=== PATIENT | female | born 1945 | race Caucasian/White ===

== ENCOUNTER → 2017-01-12 | Outpatient (CLI) | payer MEDICARE, MEDICAID ==
[~2017-01-12] MED LIST: AMINOPHYLLIN200 MG PO; AMIODARONE HCL200 MG PO; AMLODIPINE BESY1 CA1 PO; AMLODIPINE BESY1 CA2 PO; AMLODIPINE BESY1 T23 PO; ARGINAID POWDE1 EACH PO; ARTHRITIS PAIN650 M3 PO; ASPIRIN ADULT L81 M2 PO; ASPIRIN81 M1 PO; ATIVAN0.5 MG PO; BAYER ASPIRIN C81 MG PO; CELEXA10 MG PO; CIPRO500 MG PO; COLACE100 MG PO; COUMADIN1 M1 PO; COUMADIN3 M1 PO; CRESTOR20 MG PO; DOK COLACE100 MG PO; DULCOLAX10 M1 RC; FERROUS SULFAT325 MG PO; FUROSEMIDE40 MG PO; HYDROCODONE BIT1 T11 PO; KEFLEX500 MG PO; KLOR-CON M2020 ME1 PO; LASIX20 MG PO; LEVOFLOXACIN5 ML PO; LIPITOR10 MG PO; LIPITOR40 MG PO; LOSARTAN POTASS25 M1 PO; LOVENOX30 MG/0.3 SC; Lopressor25 MG PO; METOPROLOL SUCC25 M2 PO; METOPROLOL SUCC50 M1 PO; MILK OF MA400 MG/51 PO; Magnesium Oxid400 MG PO; NAPROSYN500 MG PO; NATURE'S BLEND F1 MG PO; NKHM PO; OYSTER SHELL C1 EAC3 PO; PHYTONADIONE PO; SYMBICORT1 AE1 INH; TERBINAFINE250 MG PO; TOPROL XL50 M1 PO; VICODIN 5/500 505 MG PO; VITAMIN D-32000 UNIT PO; VITAMIN D32000 UNI1 PO; VOLTAREN50 M1 PO; ZOLOFT50 MG PO; [UNRECOGNIZED DRUG - OTHER] PO
== END | disposition home or self-care (01) ==
LOC: US 11:00
DX: I65.23 Occlusion and stenosis of bilateral carotid arteries (principal); L81.9 Disorder of pigmentation, unspecified; M79.674 Pain in right toe(s)

== ENCOUNTER 2017-01-22 13:01 | Inpatient (IN) | payer MEDICARE, MEDICAID ==
[~2017-01-22] VITALS: Ht 160 cm; Wt 59.9 kg
--- NOTE | ~2017-01-22 | CON ---
[place], [place] REPORT OF CONSULTATION NAME: RUBEN HENRY UNIT #: [id number] ROOM: [facility] DOCTOR: RAMY FERGUSON MD,MARTY BIRTHDATE: [birth year] DOS: 01/24/2017 The patient asked for consultation for this patient, but the patient was transferred prior to the assessment from this hospital to another facility and was not assessed. MARTY MCCANN MD CM:CONSTR:REPORT OF CONSULTATION 1230 01/24/17 2307 interface
[2017-01-22 13:01] VITALS: BP 110/60
[2017-01-22 13:48] LABS: BASO # 0.1 10*3/uL (0.0-0.1); BASO % 0.9 % (0.0-1.0); EOS # 1.4 10*3/uL (0.0-0.4); EOS % 16.8 % (1.0-4.0); HEMATOCRIT 33.1 % (37.0-47.0); HEMOGLOBIN 10.5 g/dl (12.0-16.0); LYMPH % 23.7 % (27.0-41.0); MEAN CELL VOLUME 96.8 fl (81.0-99.0); MEAN CORPUSCULAR HGB 30.7 pg (27.0-31.0); MEAN CORPUSCULAR HGB CONC 31.7 g/dl (33.0-37.0); MEAN PLATELET VOLUME 12.7 fl (9.6-12.3); MONO # 0.8 10*3/uL (0.1-1.0); MONO % 10.1 % (3.0-9.0); NEUT % 48.3 % (47.0-73.0); PLATELET COUNT AUTOMATED 170 10*3/uL (130-400); RED BLOOD COUNT 3.42 10*6/uL (4.10-5.10); RED CELL DISTRI WIDTH 14.6 % (0-14.5); WHITE BLOOD COUNT 8.2 10*3/uL (4.8-10.8)
[2017-01-22 14:05] LABS: BUN 37 mg/dl (7-24); CARBON DIOXIDE 27 mmol/L (21-32); CHLORIDE 106 mmol/L (98-107); EST GLOM FILT AFRICAN AMERICAN 27 ml/min; GLUCOSE 68 mg/dL (65-99); POTASSIUM 4.3 mmol/L (3.5-5.1); SODIUM 143 mmol/L (136-145); TROPONIN I < 0.015 ng/ml (<0.045)
[2017-01-22 14:35] VITALS: BP 111/54
[2017-01-22 16:13] VITALS: BP 128/55
[2017-01-22 16:43] VITALS: BP 139/63
[2017-01-22] MEDS ORDERED: QVAR0.08 MG/AC INH (16:47)
[2017-01-22] MEDS ORDERED: TYLENOL EXTRA500 M2 PO (16:48)
[2017-01-22] MEDS ORDERED: GNC NAC 600600 MG PO (16:49)
[2017-01-22] MEDS ORDERED: XARELTO15 M1 PO (16:49)
[2017-01-22 20:00] VITALS: BP 136/70
[2017-01-22 22:02] LABS: BILIRUBIN NEGATIVE (NEGATIVE); BLOOD NEGATIVE (NEGATIVE); CLARITY CLEAR (CLEAR); COLOR YELLOW (YELLOW); GLUCOSE NEGATIVE (NEGATIVE); KETONE NEGATIVE (NEGATIVE); LEUKO ESTERASE 1+ (NEGATIVE); NITRITE NEGATIVE (NEGATIVE); PH 5.5 (5.0-9.0); PROTEIN NEGATIVE (NEGATIVE); UROBILINOGEN 0.2 E.U./dl (0.2-1.0)
[2017-01-22 22:35] LABS: BACTERIA 3+; RBC 0-2 rbc/hpf (0-2); URINE REFLEX COMMENT YES (NO); WBC 16-20 wbc/hpf (0-5)
[2017-01-23] VITALS (7 sets, daily range): BP systolic 100–182; BP diastolic 45–90
[2017-01-23 06:36] LABS: HEMATOCRIT 28.9 % (37.0-47.0); HEMOGLOBIN 9.1 g/dl (12.0-16.0); MEAN CELL VOLUME 97.6 fl (81.0-99.0); MEAN CORPUSCULAR HGB 30.7 pg (27.0-31.0); MEAN CORPUSCULAR HGB CONC 31.5 g/dl (33.0-37.0); MEAN PLATELET VOLUME 13.2 fl (9.6-12.3); PLATELET COUNT AUTOMATED 136 10*3/uL (130-400); RED BLOOD COUNT 2.96 10*6/uL (4.10-5.10); RED CELL DISTRI WIDTH 14.5 % (0-14.5); WHITE BLOOD COUNT 6.9 10*3/uL (4.8-10.8)
[2017-01-23 07:07] LABS: BASOPHIL # 0.2 10*3/uL (0-0.1); BASOPHILS 3 % (0-1); EOSINOPHIL # 1.5 10*3/uL (0-0.4); EOSINOPHILS 22 % (1-4); LYMPHOCYTE # 1.7 10*3/uL (1.3-4.4); MONOCYTE # 0.6 10*3/uL (0.1-1.0); NEUTROPHIL # 2.8 10*3/uL (2.3-7.9); NEUTROPHILS 41 % (47-73); PLATELET SUFFICIENCY NORMAL (NORMAL); TOTAL CELLS COUNTED 100 #CELLS
[2017-01-23 07:20] LABS: ALBUMIN 2.5 gm/dl (3.1-4.5); BILIRUBIN, TOTAL 0.3 mg/dl (0.2-1.0); MAGNESIUM 2.2 mg/dL (1.5-2.1); POTASSIUM 4.3 mmol/L (3.5-5.1); TOTAL PROTEIN 5.7 gm/dL (6.4-8.2)
[2017-01-23 23:12] LABS: ABG CO2 CONTENT 21.2 mmol/L (23-27); ABG HCO3 19.4 mmol/l (22-26); ABG TEMPERATURE 97.4 F (98.0-99.0); ARTERIAL BLOOD GAS PO2 55.6 mmHg (80-90)
[2017-01-23 23:20] LABS: ABG BASE EXCESS -9.6 mmol/L (-2.0-2.0); ARTERIAL BLOOD GAS PH 7.147 (7.35-7.45)
== END 2017-01-24 01:49 | disposition short-term general hospital (02) | DRG 682 ==
LOC: ED 13:01 → 4E 15:29 → EDHOLD 15:29 → 4E 15:52 → ICCU 01-23 23:14
PROVIDERS: Emergency Medicine; Internal Medicine; Student in an Organized Health Care Education/Training Program
DX: N17.9 Acute kidney failure, unspecified (principal); E43 Unspecified severe protein-calorie malnutrition; J44.9 Chronic obstructive pulmonary disease, unspecified; I48.0 Paroxysmal atrial fibrillation; M19.90 Unspecified osteoarthritis, unspecified site; I12.9 Hypertensive chronic kidney disease with stage 1 through stage 4 chronic kidney disease, or unspecified chronic kidney disease; N18.3 Chronic kidney disease, stage 3 (moderate); F32.9 Major depressive disorder, single episode, unspecified; E78.5 Hyperlipidemia, unspecified; M81.0 Age-related osteoporosis without current pathological fracture; I25.10 Atherosclerotic heart disease of native coronary artery without angina pectoris; Z95.1 Presence of aortocoronary bypass graft; Z95.2 Presence of prosthetic heart valve; Z79.01 Long term (current) use of anticoagulants; Z87.891 Personal history of nicotine dependence; Z82.49 Family history of ischemic heart disease and other diseases of the circulatory system; Z80.3 Family history of malignant neoplasm of breast; Z68.23 Body mass index [BMI] 23.0-23.9, adult

== ENCOUNTER 2017-01-27 17:43 | Inpatient (IN) | payer OTHER, MEDICAID ==
[2017-01-27] VITALS (8 sets, daily range): BP systolic 115–181; BP diastolic 56–105
[~2017-01-27] VITALS: Ht 162.5 cm; Wt 59.1 kg
--- NOTE | ~2017-01-27 | CON ---
[place], [place] REPORT OF CONSULTATION NAME: RUBEN HENRY UNIT #: [id number] ROOM: [facility] DOCTOR: MARTY KABA MD BIRTHDATE: [birth year] DOS: 01/28/2017 PULMONARY CRITICAL CARE EVALUATION AND MANAGEMENT REASON FOR CONSULTATION: Assess the patient's acute respiratory failure. HISTORY OF PRESENT ILLNESS: The patient is a 71-year-old white female who has been known to me from the past. The patient has been frequently hospitalized for the past several months for the medical management of congestive heart failure and other problems. She already underwent cardiac surgery at [facility]. She has been admitted to this hospital again in 12/2016. After a short term stay for about 24-48 hours, the patient was transferred to [facility] for medical management of congestive heart failure. She has been treated and discharged. The patient presented back to the hospital. The patient has been currently hospitalized and readmitted to this hospital on 01/27/2017. The patient reported symptoms of having shortness breath, which has occurred gradually, started in the morning until the late evening. The patient was brought to the hospital by the EMS. EMS reported with the findings of pulse oxygen saturation 84% at home. The patient has also reported to the EMS as she has her lung drained "in [facility]" prior to discharge as well. The shortness of breath has been noted progressively worse for this patient. The patient brought to the hospital and required intubation. Mechanical ventilation started for the medical management of progressive respiratory failure. The patient has been currently intubated on mechanical ventilation with sedation, which has been noted low dose. She is able to understand the questions and pointing towards the tube for possible extubation. She has not been reported any symptoms of coughing, fevers, chills or chest pain that has been described at home. REVIEW OF SYSTEMS: Cannot be completed with patient at the present time since the patient is intubated, noted on mechanical ventilation. All the history has been obtained for the patient essentially from the review of the current documentation, medical record by the other physicians, my past assessment of the patient's documentation as well. PAST MEDICAL HISTORY: 1. Noted with history of recurrent hospitalization of the patient with a congestive heart failure for this patient with systolic dysfunction. 2. History of atrial fibrillation. 3. Degenerative arthritis. 4. Essential hypertension. 5. Angioneurotic depression. 6. History of centrilobular emphysema. 7. History of osteoporosis. 8. Moderate senile kyphosis. 9. Essential hypertension. 10. Severe mitral valve regurgitation, status post replacement in 2017. 11. Coronary artery disease, two-vessel coronary artery bypass grafting as well. [place], [place] REPORT OF CONSULTATION NAME: RUBEN HENRY UNIT #: [id number] ROOM: [facility] DOCTOR: RAMY FERGUSON MD,MARTY BIRTHDATE: [birth year] PAST SURGICAL HISTORY: 1. The patient was noted as mitral valve replacement. 2. Coronary artery bypass grafting done in 08/2016 in [facility]. 3. . 4. Intubation and mechanical ventilation for acute hypoxic respiratory failure. 5. What appear like thoracentesis as well. SOCIAL HISTORY: The patient is , has a children, residing at the nursing facility previously as well. Tobacco use noted since younger age, 2 pack of cigarettes per day, discontinued in the past few years ago. Denies history of alcohol use or any illicit drug use. FAMILY HISTORY: The patient reported father at age of 5858 years old, complication of myocardial infarction. Mother at age 51-year-old from complication of metastatic breast cancer. CURRENT MEDICATIONS: Which has been administered for the patient on this admission noted use of Lipitor, metoprolol tartrate, Xarelto, Protonix, IV Solu-Medrol, DuoNeb, IV Lasix 40 mg daily, IV Levaquin, IV vancomycin and Zosyn and other p.r.n. medications administration as well. DRUG ALLERGIES: The patient noted no known drug allergies. PHYSICAL EXAMINATION: GENERAL: This is a 71-year-old female who has been noted currently awake on the mechanical ventilator without any acute distress. VITAL SIGNS: The height for the patient noted 5 feet 4 inches, weight of 130 pounds. She was getting IV Diprivan at 10 mcg per kilogram per minute. The vital signs for the patient, which has been recorded showed the temperature of the patient recorded as normal since admission, respiratory rate 14-18, heart rate 64-100. The blood pressure 140/71-142/73. Intake for the patient recorded as 1160 mL, output 1400 mL since admission. Pulse oxygen saturation recorded on 40% oxygen with the BiPAP initially, 97% later on intubation. On 30% oxygen, the patient this morning noted 98%, prior to that 50% oxygen was used post-intubation with a saturation of 98% saturation at that time. HEENT: Examination shows head was atraumatic. The patient is orally intubated, orogastric tube is in place. NECK: Supple. CARDIOVASCULAR: S1, S2 is audible. LUNGS: The patient was noted without any wheezing. Scattered crackles of the lungs for the patient was noted. ABDOMEN: Soft, nontender. LABORATORY DATA: The lactic acid noted 2.8 on 01/27/2017. Troponin noted 0.14 on 01/27/2017 as well. The arterial blood gas of the patient on admission pH of 7.22, pCO2 of 53, pO2 of 92. The patient 40% with the BiPAP 12/8 settings. CBC on 01/27/2017, WBC count 18.5, hemoglobin 10.2, hematocrit 32.9, platelet count of 285,000 with 44% lymphocytes, 40% segmented neutrophils. Follow up lactic acid 1.8. The BMP of the patient that was done on 01/27/2017, BUN 46, creatinine 1.8, glucose 181, sodium 146, chloride mildly elevated as well. The [place], [place] REPORT OF CONSULTATION NAME: RUBEN HENRY UNIT #: [id number] ROOM: [facility] DOCTOR: RAMY FERGUSON MD,MARTY BIRTHDATE: [birth year] CMP of patient's BUN and creatinine on her previous short admission in this hospital noted BUN 35, creatinine 1.94 at that time. The PT, PTT for the patient that was done this morning was noted as normal PT and PTT. CMP repeated this morning showed BUN 45, creatinine 1.87, glucose 131. Albumin 2.8. The CK-MB and troponin repeated again shows CPK for this patient and MB were noted normal. Troponin 0.082, mildly elevated. Review of the radiology data for this patient. The chest x-ray of the patient that was done on admission, on 01/27/2017, was reviewed. It shows endotracheal tube was noted 4 cm above the sid level. The patient with right perihilar area and the left lower lobe atelectasis, infiltration combination. Chest x-ray repeated on 01/27/2017 for the patient as well shows bilateral pleural fluid, noted basilar area of atelectasis, which appeared to be increased with the patient since previous chest x-ray. The chest x-ray done this morning showed reduction of the previous noted area of atelectasis, pleural fluid, pulmonary venous congestion and infiltration as well. However, the infiltration, consolidation right lower lobe was still noted. IMPRESSION: 1. The patient will be currently admitted to the hospital, noted with acute hypercapnic and hypoxic respiratory failure as a result of most likely acute pneumonia, possibility aspiration to be considered. 2. Frequent hospitalization. The patient's colonization most likely of Gram-positive and Gram-negative organism, hospital-associated infection to be considered. 3. The patient with previous history of heavy nicotine abuse with chronic obstructive pulmonary disease and acute exacerbation as well occurred because of the current infection. 4. Acute sepsis of the patient, which has been noted on admission with resolving lactic acidosis. 5. History of congestive heart failure, systolic dysfunction as well. 6. The patient with chronic kidney disease stage III, for this patient appeared to be stable at the present time. PLAN OF TREATMENT: The patient's sedation has been ordered to be completely discontinued. The patient will be started on CPAP of 5, pressure support of 10 for 2 hours. The arterial blood gas will be assessed at that time. If the patient will be noted appropriate improvement in the ventilatory status and the patient with improvement in the hypoxia and stable clinical status, she might be considered for liberation of mechanical ventilator. In the meantime, continue ventilator bundle management. Nutrition support for the patient with the NG tube feeding will be decided for the patient. If the patient remains on mechanical ventilator to be given the nutrition support from the NG tube, otherwise, the patient could be assessed for oral nutrition support. Assess the patient by the Speech if she does get liberate from mechanical ventilator. Certainly, if the patient got liberated from mechanical ventilation, BiPAP will be used to stabilize the respiratory status following that. Monitor culture results of the patient's blood, endotracheal aspirate and others. Continue DVT prophylaxis with the form of Xarelto. Monitor heart rate for the patient's atrial fibrillation. Nutrition support will be provided for this patient. [place], [place] REPORT OF CONSULTATION NAME: RUBEN HENRY UNIT #: [id number] ROOM: [facility] DOCTOR: RAMY FERGUSON MD,MARTY BIRTHDATE: [birth year] Obtain the prealbumin level for the patient to assess the protein calorie malnutrition. Supportive therapy. Usual care. Total time for pulmonary critical care evaluation, management, consultation and dictation is 45 minutes. MARTY MCCANN MD CM:CONSTR:REPORT OF CONSULTATION 1424 01/28/17 2311 interface
--- NOTE | ~2017-01-27 | CON ---
[place], [place] REPORT OF CONSULTATION [id number] UNIT #: [id number] ROOM: 503 DOCTOR: YOLETTE QUEEN DPM BIRTHDATE: [birth year] DOS: 01/30/2017 SUBJECTIVE: The patient presents as a 71-year-old female who is known to our practice. The patient was seen at the office on 01/04/2017. Abnormal vascular studies were obtained and the patient was referred for vascular consultation with Dr. Torres's office. The patient was not seen again after that point. We are obtaining records from Dr. Torres's office to see what treatment had transpired. The patient is still complaining of discoloration and tenderness to the toes of the left foot. PAST MEDICAL HISTORY: Arthritis of the back and knees, atrial fibrillation, complete left bundle branch block, concussion, COPD, depression, fall, hypertension, hyperlipidemia, mitral regurgitation, normocytic anemia, NSTEMI, osteoporosis, overweight, severe protein calorie malnutrition, bicuspid regurgitation. PAST SURGICAL HISTORY: History of previous section, CABG x 4, heart valve replacement. SOCIAL HISTORY: Denies alcohol or illicit drug use, former smoker. FAMILY HISTORY: Father at age 58 of an [place]. Mother at age 51 of breast cancer, no known allergies. LOWER EXTREMITY EXAMINATION: Diminished pedal pulses, bilateral, cyanotic changes to the distal toes of the left foot with purple discoloration, no signs of acute gangrenous changes, tenderness to the digits noted. partial thickness ulcerations. Radiographs were unremarkable of both feet. ASSESSMENT: Peripheral vascular disease, left worse than right, ulcerative pregangrenous digits of the left foot. PLAN: Evaluation and management. Ordered arterial Doppler bilateral lower extremity. We will obtain records from Dr. Torres to see if any vascular intervention had been performed last month. If not, I recommend to proceed with the vascular consultation again and possible vascular intervention for the left lower extremity. YOLETTE QUEEN DPM CM:CONSTR:REPORT OF CONSULTATION 1245 01/30/17 2317 interface
--- NOTE | ~2017-01-27 | CON ---
[place], [place] REPORT OF CONSULTATION NAME: RUBEN HENRY UNIT #: [id number] ROOM: [facility] DOCTOR: KADEN MARTEL,EWAJerry BIRTHDATE: [birth year] DOS: 01/28/2017 REASON FOR CONSULTATION: Congestive heart failure. HISTORY OF PRESENT ILLNESS: The patient is a 71-year-old patient with history of coronary artery disease, valvular heart surgery, who was admitted for progressive shortness of breath. She had history of a bypass surgery and a mitral valve replacement last year and evidently she was at [facility] in [place], [place], and was discharged on Sunday and she was admitted due to congestive heart failure and also she had "thoracentesis" and discharged home on Sunday. On Sunday, she noted to have progressive shortness of breath and EMS was called and her pulse ox was about 90% and she was brought to the Emergency Room and was subsequently admitted to the hospital and required intubation due to her respiratory distress. She did have some "chest pressure" en route to the Emergency Room in ambulance. Due to patient being on ventilator and sedated, history was obtained from the ED records and her medical record. REVIEW OF SYSTEMS: Review of 8 systems negative due to patient being on ventilator and sedated. PAST MEDICAL HISTORY: 1. Coronary artery disease. 2. Mitral regurgitation. 3. Atrial fibrillation. 4. Hypertension. 5. Dyslipidemia. 6. Overweight. 7. Left bundle branch block. 8. COPD. PAST SURGICAL HISTORY: 1. Bypass surgery x 4. 2. Mitral valve replacement. 3. . SOCIAL HISTORY: The patient does not use any illicit drugs or does not drink. She was a former smoker, but quit smoking. FAMILY HISTORY: Father at age 58 from myocardial infarction. Mother at the age of 51 from breast cancer. ALLERGIES: No known drug allergies. MEDICATIONS: Home medications and current medications reviewed. PHYSICAL EXAMINATION: VITAL SIGNS: Blood pressure 140/71, pulse 79, respiratory rate 18. GENERAL: The patient is on ventilator and sedated. HEENT: The patient is on ventilator; hence, limited [place], [place] REPORT OF CONSULTATION NAME: RUBEN HENRY UNIT #: [id number] ROOM: [facility] DOCTOR: KADEN MARTEL,GREGG BIRTHDATE: [birth year] examnvetski . NECK: Supple. No distended neck veins. No carotid bruits. CHEST: Symmetrical. LUNGS: Few scattered rhonchi, diminished at right base. HEART: Regular rhythm. No S3. Grade 1/6 systolic murmur. No palpable thrills. ABDOMEN: Bowel sounds normal, no pulsatile masses. EXTREMITIES: Showed 1+ edema. Distal pulses are palpable. SKIN: Warm and dry. No cyanosis, no clubbing. NEUROLOGIC: The patient was on ventilator and sedated. RECTAL: Deferred. GENITOURINARY: Deferred. REVIEW OF THE DIAGNOSTIC TESTS: EKG, rhythm strips and labs reviewed. IMPRESSION: 1. Acute diastolic heart failure. 2. Respiratory failure, on mechanical ventilation. 3. Borderline elevation of cardiac troponins due to hypoxic respiratory failure and possible type 2 non-ST elevation myocardial infarction. 4. Coronary artery disease, status post 4-vessel bypass surgery. 5. Status post mitral valve replacement. 6. Paroxysmal atrial fibrillation. 7. Anemia. 8. Chronic kidney disease. RECOMMENDATIONS: 1. Continue her current supportive therapy. 2. Continue her home medications including aspirin, Xarelto, and beta blockers. 3. repeating a 2D echo for LV function and valvular function. 4. Her blood pressures and heart rates are stable. 5. Currently, there is no family at bedside at the time of my examination. 6. Dr. Post was on the case for her ventilator management and possible extubation when she is stable. 7. We will try to obtain her records from [facility]. GREGG ALFONSO MD CM:CONSTR:REPORT OF CONSULTATION 2135 01/29/17 0041 interface
--- NOTE | ~2017-01-27 | PR ---
[place], [place] PROGRESS NOTE NAME: RUBEN HENRY UNIT #: [id number] [facility] DOCTOR: MARTY KABA MD BIRTHDATE: [birth year] DOS: 01/29/2017 SUBJECTIVE: She has been successfully liberated from mechanical ventilator. NG tube for this patient was inserted yesterday and she was otherwise kept n.p.o. She has been ordered the modified barium swallow to be done today for possibility of dysphagia for the patient with recurrent aspiration pneumonia. The patient does have a cough without any sputum expectoration. Denies symptoms of chest pain, abdominal pain, shortness of breath have been noted decreased. Generalized weakness and fatigue, was described. OBJECTIVE: VITAL SIGNS: Showed normal temperature, respiratory rate 19 this morning, heart rate of 80, blood pressure 131/68. The pulse oxygen saturation for the patient recorded on 2 L nasal cannula 99% saturation. HEENT: Shows no new change. NECK: Supple. CARDIOVASCULAR SYSTEM: S1, S2 is audible. LUNGS: The patient noted with scattered crackles of the lungs without any wheezing. ABDOMEN: Soft, nontender. LABORATORY DATA: CBC today, hemoglobin 9.7, hematocrit 29.7, WBC count normal, platelet count were normal. CMP of the patient, BUN 50, creatinine 2.13, glucose 163. Total protein of 6.1, albumin of 2.7. IMPRESSION: 1. The patient who has been currently noted with significant improvement and resolution has been noted for the acute on chronic hypoxic respiratory failure, currently treated with oxygen supplementation and BiPAP as needed. 2. Congestive heart failure with systolic dysfunction with patient history. 3. Acute pneumonia, the patient which has been suspected with acute sepsis with lactic acidosis, currently improving. 4. Rule out dysphagia as well. PLAN OF TREATMENT: Continue current antibiotics. Proceed with modified barium swallow prior to making decision about the oral intake and diet consistency. In the meantime, use the NG tube for the patient if necessary for any medications or dietary intake. Usual care. All other supportive therapy, plan of management and treatments. [place], [place] PROGRESS NOTE NAME: RUBEN HENRY UNIT #: [id number] [facility] DOCTOR: MARTY KABA MD BIRTHDATE: [birth year] MARTY MCCANN MD CM:RDAU [id number] MARTY FERGUSON MD 01/29/17 1137 interface
--- NOTE | ~2017-01-27 | PROC NOTE ---
[place], [place] PROCEDURE NOTE NAME: RUBEN HENRY [facility] #: [id number] UNIT #: [id number] ROOM: [facility] DOCTOR: ROBYN SALMERON BIRTHDATE: [birth year] DOS: 01/29/2017 LOCATION: [facility]. ROOM: [place] [address]. DOCTOR: Dr. Post. RADIOLOGIST: ____. BACKGROUND INFORMATION: The patient is a 71-year-old female, was seen for a modified barium swallow. This test was ordered to rule out aspiration due to recurrent pneumonia. The patient reported having pneumonia 3 times since September. The patient was admitted with shortness of breath. She was recently hospitalized at [facility] with bypass surgery and mitral valve replacement. Further medical history includes increased cardiac enzymes, severe sepsis, respiratory distress, anxiety, arthritis, CABG, CAD, atrial fibrillation, HTN, and COPD. She is currently n.p.o. and fed by NG tube. For today's assessment, she was alert and able to follow commands. She was receiving oxygen via nasal cannula. Oral peripheral examination revealed presence of upper and lower denture which patient reported had an adequate fit. Lingual, labial, and buccal skills were within normal limits in terms of strength, range of motion, and coordination. The patient was able to volitionally cough and swallow. METHODS AND MATERIALS USED FOR THE EXAMINATION: The patient was positioned in the lateral plane and the examination was viewed under fluoroscopy. The patient was presented with a variety of consistencies to assess swallowing skills including applesauce mixed with barium presented in half teaspoon amounts, barium-coated cookie presented in bite size piece, and nectar thick barium taken by cup with head in both neutral and chin tuck positions. ORAL PHASE: The patient achieved adequate labial seal around cup and spoon with no anterior loss. Bolus formation and transit were adequate. Tongue to palate contact was within normal limits. Tongue to posterior pharyngeal wall contact was mildly impaired. Velar functioning within normal limits. PHARYNGEAL PHASE: The pharyngeal swallow occurred within a timely manner. Laryngeal elevation and epiglottic function were reduced. Silent penetration did occur with nectar thick liquids. This was eliminated with chin tuck position. Penetration did not occur with any other consistency. No aspiration was observed. Residue in the vallecula was observed post-swallow with consistencies given. However, this mostly cleared with subsequent swallow. ESOPHAGEAL PHASE: This phase of the swallow was not formally assessed during this exam. IMPRESSIONS AND RECOMMENDATIONS: Based upon assessment results, this 71-year-old patient presented with a mild oropharyngeal dysphagia. Residue was observed post-swallow in the vallecula, which mostly cleared with subsequent swallow. Reduced laryngeal elevation and epiglottic function occurred with [place], [place] PROCEDURE NOTE NAME: RUBEN HENRY UNIT #: [id number] [facility]OM: [facility] DOCTOR: ROBYN SALMERON BIRTHDATE: [birth year] silent penetration during the swallow noted on nectar liquids. This was eliminated with chin tuck. Recommended regular diet and nectar thick liquids. Recommend chin tuck with liquids. Followup therapy is recommended focusing on strengthening exercises, strategies, and education to ensure safety with highest level diet. Results and recommendations were shared with the patient and her nurse and they verbalized understanding. Thank you very much for this referral. Should you have any questions regarding this patient, please contact the speech pathologist at [phone]. ROBYN SALMERON CM:PROCNOTE:PROCEDURE NOTE [id number] ROBYN SALMERON
--- NOTE | ~2017-01-27 | PR ---
[place], [place] PROGRESS NOTE NAME: RUBEN HENRY UNIT #: [id number] ROOM: 503 DOCTOR: MARTY KABA MD BIRTHDATE: [birth year] DOS: 01/30/2017 PULMONARY PROGRESS NOTE SUBJECTIVE: She has been noted comfortable at this time, resting, sitting on the bed. She has modified barium swallow completed yesterday as well. Denies symptoms of chest pain or any abdominal pain. OBJECTIVE: VITAL SIGNS: For the patient shows normal temperature, respiratory rate of 18, heart rate of 89, blood pressure 152/72, this morning 137/59. Intake for the patient recorded 1500 mL, output 926 mL. Pulse oxygen saturation on 2 L nasal cannula 99% saturation recorded. HEENT: Examination shows head was atraumatic. Eyes nonicterus. NECK: Supple. CARDIOVASCULAR SYSTEM: S1, S2 audible. LUNGS: The patient was noted without any wheezing. Occasional crackles of the lungs. Decreased breath sounds in lung bases. ABDOMEN: Soft, nontender. LABORATORY DATA: CMP this morning, BUN 51, creatinine 2.24. Glucose 165. Potassium 3.2. CBC: Hemoglobin 9.5, hematocrit 29.6, platelet count was normal. Chest x-ray that was done this morning showed reduction previously noted, pulmonary infiltration was noted with small to moderate bilateral pleural fluid was suspected. Mild to moderate kyphoscoliosis of the thoracic spine was also noted. IMPRESSION: 1. The patient with possibility of acute aspiration pneumonia, treated for gram-positive and gram-negative organisms. 2. Bilateral pleural fluid secondary to congestive heart failure. 3. History of coronary artery bypass grafting and aortic valve replacement. PLAN OF TREATMENT: Continue for this patient any changes in the diet if recommended by the speech therapy. Continue monitoring pleural fluid. No immediate intervention will be needed unless the pleural fluid is larger. With the pleural fluid for this patient, certainly thoracentesis could be done. treatment otherwise will be advised. Usual care. Supportive care. Other therapy, plan of management and treatments. [place], [place] PROGRESS NOTE NAME: RUBEN HENRY UNIT #: [id number] ROOM: 503 DOCTOR: MARTY KABA MD BIRTHDATE: [birth year] MARTY MCCANN MD CM:PNTRANS 09 39 MARTY FERGUSON MD 01/30/172140 interface
[~2017-01-27 17:43] MED LIST changes: +GNC NAC 600600 MG PO; +QVAR0.08 MG/AC INH; +TYLENOL EXTRA500 M2 PO; +XARELTO15 M1 PO
[2017-01-27 18:02] LABS: HEMATOCRIT 32.9 % (37.0-47.0); HEMOGLOBIN 10.2 g/dl (12.0-16.0); MEAN CELL VOLUME 99.1 fl (81.0-99.0); MEAN CORPUSCULAR HGB 30.7 pg (27.0-31.0); PLATELET COUNT AUTOMATED 285 10*3/uL (130-400); RED BLOOD COUNT 3.32 10*6/uL (4.10-5.10); RED CELL DISTRI WIDTH 15.4 % (0-14.5); WHITE BLOOD COUNT 18.5 10*3/uL (4.8-10.8)
[2017-01-27 18:24] LABS: ABG CO2 CONTENT 22.9 mmol/L (23-27); ABG HCO3 21.3 mmol/l (22-26); ARTERIAL BLOOD GAS PH 7.22 (7.35-7.45); ARTERIAL BLOOD GAS PO2 92.4 mmHg (80-90)
[2017-01-27 18:25] LABS: ABG BASE EXCESS -6.2 mmol/L (-2.0-2.0)
[2017-01-27 18:42] LABS: ATYPICAL LYMPHS 1 % (0-0); BASOPHIL # 0.2 10*3/uL (0-0.1); BASOPHILS 1 % (0-1); EOSINOPHIL # 0.6 10*3/uL (0-0.4); EOSINOPHILS 3 % (1-4); LYMPHOCYTE # 8.3 10*3/uL (1.3-4.4); METAMYELOCYTES 1 % (0-0); MONOCYTE # 1.9 10*3/uL (0.1-1.0); NEUTROPHIL # 7.4 10*3/uL (2.3-7.9); NEUTROPHILS 40 % (47-73); TOTAL CELLS COUNTED 100 #CELLS
[2017-01-27 18:43] LABS: PLATELET SUFFICIENCY NORMAL (NORMAL)
[2017-01-27] MEDS ORDERED: MUCOMIST 26 GM/30 ML INH (19:12)
[2017-01-27] MEDS ORDERED: ASPIRIN81 M1 PO (19:12)
[2017-01-27] MEDS ORDERED: TYLENOL325 M1 PO (19:12)
[2017-01-27] MEDS ORDERED: ATIVAN0.5 MG PO (19:13)
[2017-01-27] MEDS ORDERED: QNASL8.7 GM INH (19:13)
[2017-01-27] MEDS ORDERED: LIPITOR40 MG PO (19:13)
[2017-01-27] MEDS ORDERED: Lopressor25 MG PO (19:14)
[2017-01-27] MEDS ORDERED: SERTRALINE HYDR50 MG PO (19:14)
[2017-01-27] MEDS ORDERED: XARELTO15 M1 PO (19:14)
[2017-01-27 19:59] LABS: LA>2 REFLEX 2 HR DRAW NOW
[2017-01-27 22:17] LABS: POTASSIUM 4.1 mmol/L (3.5-5.1)
[2017-01-27 22:44] LABS: ABG BASE EXCESS -0.3 mmol/L (-2.0-2.0); ABG CO2 CONTENT 24.4 mmol/L (23-27); ABG HCO3 23.3 mmol/l (22-26); ABG TEMPERATURE 97.2 F (98.0-99.0); ARTERIAL BLOOD GAS PH 7.442 (7.35-7.45); ARTERIAL BLOOD GAS PO2 68.6 mmHg (80-90)
[2017-01-28] VITALS (10 sets, daily range): BP systolic 116–157; BP diastolic 55–83
[2017-01-28 00:42] LABS: CKMB 3.7 ng/ml (0.5-3.6)
[2017-01-28 00:43] LABS: TROPONIN I 0.143 ng/ml (<0.045)
[2017-01-28 05:33] LABS: ABG BASE EXCESS 0.2 mmol/L (-2.0-2.0); ABG CO2 CONTENT 23.4 mmol/L (23-27); ABG HCO3 22.5 mmol/l (22-26); ABG TEMPERATURE 97.7 F (98.0-99.0); ARTERIAL BLOOD GAS PH 7.505 (7.35-7.45)
[2017-01-28 06:26] LABS: BASO % 0.2 % (0.0-1.0); HEMATOCRIT 30.7 % (37.0-47.0); HEMOGLOBIN 9.8 g/dl (12.0-16.0); LYMPH # 0.9 10*3/uL (1.3-4.4); LYMPH % 17.1 % (27.0-41.0); MEAN CELL VOLUME 96.2 fl (81.0-99.0); MEAN CORPUSCULAR HGB 30.7 pg (27.0-31.0); MEAN CORPUSCULAR HGB CONC 31.9 g/dl (33.0-37.0); MEAN PLATELET VOLUME 13.3 fl (9.6-12.3); MONO # 0.3 10*3/uL (0.1-1.0); MONO % 5.3 % (3.0-9.0); NEUT # 3.9 10*3/uL (2.3-7.9); NEUT % 76.6 % (47.0-73.0); NUCLEATED RED BLOOD CELL 0.4 % (0.0-0.0); RED BLOOD COUNT 3.19 10*6/uL (4.10-5.10); RED CELL DISTRI WIDTH 14.7 % (0-14.5); WHITE BLOOD COUNT 5.1 10*3/uL (4.8-10.8)
[2017-01-28 06:31] LABS: PLATELET COUNT AUTOMATED 151 10*3/uL (130-400)
[2017-01-28 06:38] LABS: ALBUMIN 2.8 gm/dl (3.1-4.5); CKMB 3.1 ng/ml (0.5-3.6); MAGNESIUM 2.4 mg/dL (1.5-2.1); POTASSIUM 3.9 mmol/L (3.5-5.1)
[2017-01-28 06:45] LABS: BILIRUBIN, TOTAL 0.5 mg/dl (0.2-1.0); FREE T4 1.57 ng/dl (0.76-1.46); THYROID STIM HORMONE (HS) 1.69 uIU/ml (0.358-4.75); TOTAL PROTEIN 6.5 gm/dL (6.4-8.2)
[2017-01-28 06:48] LABS: TROPONIN I 0.108 ng/ml (<0.045)
[2017-01-28 06:54] LABS: HEMOGLOBIN A1c 5.9 % (4.8-5.6)
[2017-01-28 06:55] LABS: INTERNATIONAL NORM RATIO 1.2 (2.0-3.5); PROTHROMBIN TIME 12.3 SECONDS (9.0-12.4)
[2017-01-28 08:06] LABS: FOLIC ACID 20.31 ng/mL (>5.38)
[2017-01-28 12:19] LABS: CKMB 2.2 ng/ml (0.5-3.6)
[2017-01-28 12:29] LABS: TROPONIN I 0.082 ng/ml (<0.045)
[2017-01-28 14:53] LABS: ABG BASE EXCESS 0.3 mmol/L (-2.0-2.0); ABG CO2 CONTENT 23.6 mmol/L (23-27); ABG HCO3 22.7 mmol/l (22-26); ARTERIAL BLOOD GAS PH 7.492 (7.35-7.45)
[2017-01-29] VITALS: BP 146/67
[2017-01-29 04:00] VITALS: BP 136/62
[2017-01-29 05:46] LABS: ALBUMIN 2.7 gm/dl (3.1-4.5); BILIRUBIN, TOTAL 0.5 mg/dl (0.2-1.0); MAGNESIUM 2.3 mg/dL (1.5-2.1); POTASSIUM 3.5 mmol/L (3.5-5.1); TOTAL PROTEIN 6.1 gm/dL (6.4-8.2)
[2017-01-29 05:58] LABS: HEMATOCRIT 29.7 % (37.0-47.0); HEMOGLOBIN 9.7 g/dl (12.0-16.0); IG # 0.1 10*3/uL (0.0-0.1); LYMPH # 0.8 10*3/uL (1.3-4.4); LYMPH % 9.5 % (27.0-41.0); MEAN CELL VOLUME 94.9 fl (81.0-99.0); MEAN CORPUSCULAR HGB CONC 32.7 g/dl (33.0-37.0); MEAN PLATELET VOLUME 13.2 fl (9.6-12.3); MONO # 0.6 10*3/uL (0.1-1.0); MONO % 6.5 % (3.0-9.0); NEUT # 7.2 10*3/uL (2.3-7.9); NEUT % 83.2 % (47.0-73.0); PLATELET COUNT AUTOMATED 190 10*3/uL (130-400); RED BLOOD COUNT 3.13 10*6/uL (4.10-5.10); RED CELL DISTRI WIDTH 15.1 % (0-14.5); WHITE BLOOD COUNT 8.6 10*3/uL (4.8-10.8)
[2017-01-29 08:00] VITALS: BP 131/68
[2017-01-29 12:00] VITALS: BP 149/71
[2017-01-29 16:00] VITALS: BP 125/60
[2017-01-29 20:00] VITALS: BP 125/58
[2017-01-30] VITALS: BP 139/68
[2017-01-30 06:09] LABS: BASO % 0.1 % (0.0-1.0); HEMATOCRIT 29.6 % (37.0-47.0); HEMOGLOBIN 9.5 g/dl (12.0-16.0); IG # 0.1 10*3/uL (0.0-0.1); LYMPH # 0.6 10*3/uL (1.3-4.4); LYMPH % 6.9 % (27.0-41.0); MEAN CELL VOLUME 95.2 fl (81.0-99.0); MEAN CORPUSCULAR HGB 30.5 pg (27.0-31.0); MEAN CORPUSCULAR HGB CONC 32.1 g/dl (33.0-37.0); MONO # 0.4 10*3/uL (0.1-1.0); MONO % 3.9 % (3.0-9.0); NEUT # 7.8 10*3/uL (2.3-7.9); PLATELET COUNT AUTOMATED 198 10*3/uL (130-400); RED BLOOD COUNT 3.11 10*6/uL (4.10-5.10); RED CELL DISTRI WIDTH 15.1 % (0-14.5); WHITE BLOOD COUNT 8.9 10*3/uL (4.8-10.8)
[2017-01-30 06:36] LABS: ALBUMIN 2.7 gm/dl (3.1-4.5); BILIRUBIN, TOTAL 0.5 mg/dl (0.2-1.0); MAGNESIUM 2.4 mg/dL (1.5-2.1); POTASSIUM 3.2 mmol/L (3.5-5.1); TOTAL PROTEIN 6.1 gm/dL (6.4-8.2)
[2017-01-30 08:00] VITALS: BP 137/59
[2017-01-30 12:00] VITALS: BP 152/72
[2017-01-30] MEDS ORDERED: DOXYCYCLINE100 M3 PO (13:21)
[2017-01-30] MEDS ORDERED: PREDNISONE10 MG PO (13:21)
[2017-01-30] MEDS ORDERED: LASIX20 MG PO (14:10)
[2017-01-30] MEDS ORDERED: K-TAB20 MEQ PO (14:18)
[2017-01-30 16:00] VITALS: BP 117/54
== END 2017-01-30 18:11 | disposition home health service (06) | DRG 871 ==
LOC: ED 17:43 → ICCU 18:49 → EDHOLD 18:49 → ICCU 19:05 → 5E 01-29 15:10
PROVIDERS: Emergency Medicine; Family Medicine Adult Medicine; Internal Medicine; Internal Medicine Critical Care Medicine
PROC: 5A09357 Assistance with Respiratory Ventilation, Less than 24 Consecutive Hours, Continuous Positive Airway Pressure (ICD-10-PCS; principal; 2017-01-28)
PROC: BD1BYZZ Fluoroscopy of Mouth/Oropharynx using Other Contrast (ICD-10-PCS; principal; 2017-01-28)
PROC: 0BH17EZ Insertion of Endotracheal Airway into Trachea, Via Natural or Artificial Opening (ICD-10-PCS; principal; 2017-01-28)
PROC: 5A1935Z Respiratory Ventilation, Less than 24 Consecutive Hours (ICD-10-PCS; principal; 2017-01-28)
DX: A41.9 Sepsis, unspecified organism (principal); E43 Unspecified severe protein-calorie malnutrition; N17.0 Acute kidney failure with tubular necrosis; J96.21 Acute and chronic respiratory failure with hypoxia; I21.4 Non-ST elevation (NSTEMI) myocardial infarction; I50.31 Acute diastolic (congestive) heart failure; J18.9 Pneumonia, unspecified organism; I48.0 Paroxysmal atrial fibrillation; E83.41 Hypermagnesemia; I13.0 Hypertensive heart and chronic kidney disease with heart failure and stage 1 through stage 4 chronic kidney disease, or unspecified chronic kidney disease; R13.10 Dysphagia, unspecified; J81.0 Acute pulmonary edema; J96.22 Acute and chronic respiratory failure with hypercapnia; J44.9 Chronic obstructive pulmonary disease, unspecified; D64.9 Anemia, unspecified; R65.20 Severe sepsis without septic shock; E78.5 Hyperlipidemia, unspecified; N18.9 Chronic kidney disease, unspecified; M81.0 Age-related osteoporosis without current pathological fracture; I73.9 Peripheral vascular disease, unspecified; I25.10 Atherosclerotic heart disease of native coronary artery without angina pectoris; I34.0 Nonrheumatic mitral (valve) insufficiency; Z95.1 Presence of aortocoronary bypass graft; I25.2 Old myocardial infarction; Z87.891 Personal history of nicotine dependence; Z82.49 Family history of ischemic heart disease and other diseases of the circulatory system; Z80.3 Family history of malignant neoplasm of breast; Z79.1 Long term (current) use of non-steroidal anti-inflammatories (NSAID); Z79.82 Long term (current) use of aspirin; Z79.899 Other long term (current) drug therapy; Z68.22 Body mass index [BMI] 22.0-22.9, adult

== ENCOUNTER 2017-03-04 21:41 | Inpatient (IN) | payer OTHER, MEDICAID ==
[~2017-03-04] VITALS: Ht 160 cm; Wt 60.8 kg
--- NOTE | ~2017-03-04 | EKG ---
[place], [place] ELECTROCARDIOGRAM REPORT NAME: RUBEN HENRY UNIT #: [id number] ROOM: [facility] DOCTOR: DAMIAN CRAMER MD BIRTHDATE: [birth year] DOS: 03/04/2017 TIME: 2207 hours. Normal sinus rhythm at a rate of 86. Normal EKG. DAMIAN CRAMER MD CM:EKGRPT:ELECTROCARDIOGRAM REPORT 1224 1458 DAMIAN CRAMER MD
--- NOTE | ~2017-03-04 | CON ---
[place], [place] REPORT OF CONSULTATION NAME: RUBEN HENRY UNIT #: [id number] ROOM: 520 DOCTOR: YOLETTE QUEEN DPM BIRTHDATE: [birth year] DOS: 03/06/2017 SUBJECTIVE: The patient presents as a 71-year-old female with chief complaint of ulcers to the left foot. The patient was seen a month ago, had vascular studies performed. Current visit medical problems, CHF, exacerbation of COPD, aspiration. PAST MEDICAL HISTORY: Arthritis, back and bilateral knee, atrial fibrillation, complete left bundle branch block, concussion, COPD, depression, fall, hypertension, hyperlipidemia, mitral regurg, normocytic anemia, osteoporosis, severe protein calorie malnutrition, tricuspid regurgitation, acute kidney failure with tubular necrosis, acute respiratory failure with hypercapnia, HCAP, PAD, right lower lobe pneumonia, severe sepsis. PAST SURGICAL HISTORY: Previous section, CABG x 4, status post heart valve replacement. SOCIAL HISTORY: Former smoker. FAMILY HISTORY: Father at age 58 of [address]. Mother at 51, breast cancer. ALLERGIES: No known allergies. PHYSICAL EXAMINATION: Lower extremity examination, pedal pulses nonpalpable. Decreased skin temperature. No hair growth. Decreased capillary refill time bilateral, left worse than right. Ulcerations at the dorsal nail bed first left toe, third left toe, an fifth left MPJ, ulceration showed no signs of purulent drainage or foul odor, no deep sinus tract. ASSESSMENT: Severe peripheral vascular disease, ulcerations, left foot. PLAN: Evaluation and management discussed with the patient and recommended vascular intervention. Ordered Bactroban dressings daily, ordered radiographs of the left foot. In my opinion, the patient needs vascular intervention due to the peripheral arterial disease. We will follow the patient tomorrow for followup. Again, the patient's arterial Doppler performed on 01/30/2017 did indeed reveal mild hemodynamically significant stenosis at the distal SFA, left greater than right with elevated velocities, inability to obtain bilateral ABIs due to calcified lower leg arteries. The patient will be seen tomorrow by Dr. Silva. [place], [place] REPORT OF CONSULTATION NAME: RUBEN HENRY UNIT #: [id number] ROOM: 520 DOCTOR: YOLETTE QUEEN DPM BIRTHDATE: [birth year] YOLETET QUEEN DPM CM:CONSTR:REPORT OF CONSULTATION 1222 03/07/17 0936 interface
[~2017-03-04 21:41] MED LIST changes: +DOXYCYCLINE100 M3 PO; +K-TAB20 MEQ PO; +MUCOMIST 26 GM/30 ML INH; +PREDNISONE10 MG PO; +QNASL8.7 GM INH; +SERTRALINE HYDR50 MG PO; +TYLENOL325 M1 PO
[2017-03-04 21:46] VITALS: BP 158/82
[2017-03-04 22:07] LABS: RED CELL DISTRI WIDTH 15.1 % (0-14.5)
[2017-03-04 22:12] LABS: BASO # 0.1 10*3/uL (0.0-0.1); EOS # 0.4 10*3/uL (0.0-0.4); EOS % 4.8 % (1.0-4.0); HEMATOCRIT 33.5 % (37.0-47.0); HEMOGLOBIN 10.4 g/dl (12.0-16.0); LYMPH # 2.8 10*3/uL (1.3-4.4); LYMPH % 30.7 % (27.0-41.0); MEAN CELL VOLUME 97.4 fl (81.0-99.0); MEAN CORPUSCULAR HGB 30.2 pg (27.0-31.0); MEAN PLATELET VOLUME 11.1 fl (9.6-12.3); MONO # 1.1 10*3/uL (0.1-1.0); MONO % 12.1 % (3.0-9.0); NEUT # 4.7 10*3/uL (2.3-7.9); NEUT % 51.1 % (47.0-73.0); PLATELET COUNT AUTOMATED 346 10*3/uL (130-400); RED BLOOD COUNT 3.44 10*6/uL (4.10-5.10); WHITE BLOOD COUNT 9.1 10*3/uL (4.8-10.8)
[2017-03-04 22:14] LABS: INTERNATIONAL NORM RATIO 1.3 (2.0-3.5); PROTHROMBIN TIME 13.5 SECONDS (9.0-12.4)
[2017-03-04 22:23] LABS: BILIRUBIN, TOTAL 0.4 mg/dl (0.2-1.0); CKMB 1.5 ng/ml (0.5-3.6); MAGNESIUM 2.5 mg/dL (1.5-2.1); POTASSIUM 3.8 mmol/L (3.5-5.1); TOTAL PROTEIN 6.8 gm/dL (6.4-8.2); TROPONIN I 0.025 ng/ml (<0.045)
[2017-03-04 22:26] LABS: BASOPHIL # 0.3 10*3/uL (0-0.1); BASOPHILS 3 % (0-1); EOSINOPHIL # 0.3 10*3/uL (0-0.4); EOSINOPHILS 3 % (1-4); LYMPHOCYTE # 2.3 10*3/uL (1.3-4.4); MONOCYTE # 1.2 10*3/uL (0.1-1.0); NEUTROPHIL # 5.1 10*3/uL (2.3-7.9); NEUTROPHILS 56 % (47-73); TOTAL CELLS COUNTED 100 #CELLS
[2017-03-04 22:27] LABS: PLATELET SUFFICIENCY NORMAL (NORMAL)
[2017-03-04 22:39] VITALS: BP 156/87
[2017-03-05 00:30] VITALS: BP 94/72
[2017-03-05 06:01] LABS: BASO % 0.4 % (0.0-1.0); EOS % 0.1 % (1.0-4.0); HEMOGLOBIN 9.5 g/dl (12.0-16.0); LYMPH # 0.8 10*3/uL (1.3-4.4); LYMPH % 10.5 % (27.0-41.0); MEAN CELL VOLUME 95.2 fl (81.0-99.0); MEAN CORPUSCULAR HGB 30.2 pg (27.0-31.0); MEAN CORPUSCULAR HGB CONC 31.7 g/dl (33.0-37.0); MEAN PLATELET VOLUME 11.4 fl (9.6-12.3); MONO # 0.1 10*3/uL (0.1-1.0); MONO % 0.7 % (3.0-9.0); NEUT # 6.7 10*3/uL (2.3-7.9); NEUT % 87.8 % (47.0-73.0); PLATELET COUNT AUTOMATED 262 10*3/uL (130-400); RED BLOOD COUNT 3.15 10*6/uL (4.10-5.10); WHITE BLOOD COUNT 7.6 10*3/uL (4.8-10.8)
[2017-03-05 06:14] LABS: CKMB 1.8 ng/ml (0.5-3.6); TROPONIN I 0.031 ng/ml (<0.045)
[2017-03-05 06:16] LABS: ALBUMIN 2.7 gm/dl (3.1-4.5); BILIRUBIN, TOTAL 0.3 mg/dl (0.2-1.0); FREE T4 1.16 ng/dl (0.76-1.46); MAGNESIUM 2.3 mg/dL (1.5-2.1); PHOSPHOROUS 3.5 mg/dL (2.5-4.9); POTASSIUM 4.2 mmol/L (3.5-5.1)
[2017-03-05 06:21] LABS: THYROID STIM HORMONE (HS) 1.17 uIU/ml (0.358-4.75)
[2017-03-05 06:37] LABS: INTERNATIONAL NORM RATIO 1.2 (2.0-3.5); PROTHROMBIN TIME 12.8 SECONDS (9.0-12.4)
[2017-03-05 06:50] LABS: HEMOGLOBIN A1c 5.3 % (4.8-5.6)
[2017-03-05 07:00] LABS: FOLIC ACID 22.27 ng/mL (>5.38); VITAMIN D, 25-HYDROXY 27.6 ng/mL (30-100)
[2017-03-05 08:00] VITALS: BP 124/56
[2017-03-05 12:00] VITALS: BP 135/60
[2017-03-05 12:27] LABS: CKMB 1.7 ng/ml (0.5-3.6); TROPONIN I 0.016 ng/ml (<0.045)
[2017-03-05 16:00] VITALS: BP 115/49
[2017-03-05 18:25] LABS: CKMB 1.4 ng/ml (0.5-3.6); CPK 49 U/L (26-192)
[2017-03-05 18:28] LABS: TROPONIN I < 0.015 ng/ml (<0.045)
[2017-03-05 20:00] VITALS: BP 99/52
[2017-03-06] VITALS: BP 106/49
[2017-03-06 07:12] LABS: POTASSIUM 4.6 mmol/L (3.5-5.1)
[2017-03-06 08:00] VITALS: BP 110/46
[2017-03-06 12:00] VITALS: BP 133/59
[2017-03-06 16:00] VITALS: BP 124/59
[2017-03-06 20:00] VITALS: BP 114/54
[2017-03-07] VITALS: BP 132/62
[2017-03-07 07:32] LABS: POTASSIUM 4.3 mmol/L (3.5-5.1)
[2017-03-07 08:00] VITALS: BP 134/48
[2017-03-07] MEDS ORDERED: LEVAQUIN250 M1 PO (10:41)
[2017-03-07] MEDS ORDERED: PREDNISONE10 MG PO (10:41)
[2017-03-07] MEDS ORDERED: D-1000 185 MG-11 TAB PO (10:41)
== END 2017-03-07 11:18 | disposition home health service (06) | DRG 291 ==
LOC: ED 21:41 → 5E 23:31 → EDHOLD 23:31 → 5E 23:49
PROVIDERS: Internal Medicine; Physician Assistant
DX: I11.0 Hypertensive heart disease with heart failure (principal); J18.9 Pneumonia, unspecified organism; E43 Unspecified severe protein-calorie malnutrition; I48.91 Unspecified atrial fibrillation; I73.9 Peripheral vascular disease, unspecified; D64.9 Anemia, unspecified; L97.529 Non-pressure chronic ulcer of other part of left foot with unspecified severity; J44.1 Chronic obstructive pulmonary disease with (acute) exacerbation; J44.0 Chronic obstructive pulmonary disease with (acute) lower respiratory infection; Z95.2 Presence of prosthetic heart valve; I50.33 Acute on chronic diastolic (congestive) heart failure; Z68.23 Body mass index [BMI] 23.0-23.9, adult; F32.9 Major depressive disorder, single episode, unspecified; Z87.891 Personal history of nicotine dependence; Z82.49 Family history of ischemic heart disease and other diseases of the circulatory system; Z80.3 Family history of malignant neoplasm of breast; I25.10 Atherosclerotic heart disease of native coronary artery without angina pectoris; Z95.1 Presence of aortocoronary bypass graft

== ENCOUNTER → 2017-04-04 | Outpatient (CLI) | payer OTHER, MEDICAID ==
[~2017-04-04] MED LIST changes: +D-1000 185 MG-11 TAB PO; +LEVAQUIN250 M1 PO
== END | disposition home or self-care (01) ==
LOC: US 13:57
DX: N18.3 Chronic kidney disease, stage 3 (moderate) (principal)

== ENCOUNTER → 2017-05-11 | Outpatient (CLI) | payer OTHER, MEDICAID ==
[2017-05-11 10:51] LABS: BASO # 0.1 10*3/uL (0.0-0.1); BASO % 1.2 % (0.0-1.0); EOS # 1.5 10*3/uL (0.0-0.4); EOS % 15.6 % (1.0-4.0); HEMATOCRIT 32.6 % (37.0-47.0); HEMOGLOBIN 10.4 g/dl (12.0-16.0); LYMPH # 2.3 10*3/uL (1.3-4.4); LYMPH % 24.1 % (27.0-41.0); MEAN CELL VOLUME 87.6 fl (81.0-99.0); MEAN CORPUSCULAR HGB CONC 31.9 g/dl (33.0-37.0); MEAN PLATELET VOLUME 12.2 fl (9.6-12.3); MONO # 0.8 10*3/uL (0.1-1.0); MONO % 8.5 % (3.0-9.0); NEUT # 4.8 10*3/uL (2.3-7.9); NEUT % 50.2 % (47.0-73.0); PLATELET COUNT AUTOMATED 249 10*3/uL (130-400); RED BLOOD COUNT 3.72 10*6/uL (4.10-5.10); RED CELL DISTRI WIDTH 14.9 % (0-14.5); WHITE BLOOD COUNT 9.5 10*3/uL (4.8-10.8)
[2017-05-11 10:52] LABS: BILIRUBIN NEGATIVE (NEGATIVE); BLOOD NEGATIVE (NEGATIVE); CLARITY SL CLOUDY (CLEAR); COLOR YELLOW (YELLOW); GLUCOSE NEGATIVE (NEGATIVE); KETONE NEGATIVE (NEGATIVE); LEUKO ESTERASE 1+ (NEGATIVE); NITRITE NEGATIVE (NEGATIVE); PROTEIN TRACE (NEGATIVE)
[2017-05-11 11:00] LABS: URINE TP/CRE RATIO 0.2 (<0.21)
[2017-05-11 11:14] LABS: BACTERIA TRACE
[2017-05-11 11:20] LABS: ALBUMIN 3.5 gm/dl (3.1-4.5); PHOSPHOROUS 3.7 mg/dL (2.5-4.9); POTASSIUM 3.7 mmol/L (3.5-5.1)
[2017-05-11 11:28] LABS: PTH INTACT 142.8 pg/mL (14.0-72.0); VITAMIN D, 25-HYDROXY 29.5 ng/mL (30-100)
== END | disposition home or self-care (01) ==
LOC: LAB 10:20
PROVIDERS: Internal Medicine Nephrology
DX: N18.3 Chronic kidney disease, stage 3 (moderate) (principal); E55.9 Vitamin D deficiency, unspecified

== ENCOUNTER → 2017-05-15 | Outpatient (CLI) | payer OTHER, MEDICAID ==
[2017-05-15 09:53] LABS: BASO # 0.1 10*3/uL (0.0-0.1); BASO % 0.8 % (0.0-1.0); EOS # 0.2 10*3/uL (0.0-0.4); EOS % 2.1 % (1.0-4.0); HEMATOCRIT 30.7 % (37.0-47.0); HEMOGLOBIN 9.8 g/dl (12.0-16.0); LYMPH # 2.6 10*3/uL (1.3-4.4); LYMPH % 30.7 % (27.0-41.0); MEAN CELL VOLUME 88.2 fl (81.0-99.0); MEAN CORPUSCULAR HGB 28.2 pg (27.0-31.0); MEAN CORPUSCULAR HGB CONC 31.9 g/dl (33.0-37.0); MEAN PLATELET VOLUME 12.2 fl (9.6-12.3); MONO # 0.7 10*3/uL (0.1-1.0); MONO % 7.7 % (3.0-9.0); NEUT % 58.5 % (47.0-73.0); PLATELET COUNT AUTOMATED 241 10*3/uL (130-400); RED BLOOD COUNT 3.48 10*6/uL (4.10-5.10); RED CELL DISTRI WIDTH 14.8 % (0-14.5); WHITE BLOOD COUNT 8.6 10*3/uL (4.8-10.8)
[2017-05-15 10:07] LABS: CHOLESTEROL 200 mg/dL (<200); HDL CHOLESTEROL 50 mg/dl (40-60); LDL CHOLESTEROL 130 mg/dL (9-159); TRIGLYCERIDES 102 mg/dl (<150); VLDL CHOLESTEROL 20 mg/dL (6-40)
== END | disposition home or self-care (01) ==
LOC: LAB 09:09
PROVIDERS: Internal Medicine
DX: E78.5 Hyperlipidemia, unspecified (principal); I25.10 Atherosclerotic heart disease of native coronary artery without angina pectoris; I10 Essential (primary) hypertension

== ENCOUNTER 2017-11-23 12:11 | Emergency (ER) | payer OTHER, MEDICAID ==
[~2017-11-23] VITALS: Ht 160 cm; Wt 65.8 kg
[2017-11-23] MEDS ORDERED: NAPROSYN500 MG PO (14:51)
== END 2017-11-23 15:19 | disposition home or self-care (01) ==
LOC: ED 12:11
DX: S20.212A Contusion of left front wall of thorax, initial encounter (principal); M19.90 Unspecified osteoarthritis, unspecified site; I11.0 Hypertensive heart disease with heart failure; I50.9 Heart failure, unspecified; E78.5 Hyperlipidemia, unspecified; I25.2 Old myocardial infarction; I48.91 Unspecified atrial fibrillation; E66.3 Overweight; Z68.29 Body mass index [BMI] 29.0-29.9, adult; Z87.891 Personal history of nicotine dependence; Z98.890 Other specified postprocedural states; Z95.1 Presence of aortocoronary bypass graft; Z79.899 Other long term (current) drug therapy; Z79.82 Long term (current) use of aspirin; W19.XXXA Unspecified fall, initial encounter; Y93.89 Activity, other specified; Y92.89 Other specified places as the place of occurrence of the external cause; Y99.9 Unspecified external cause status

== ENCOUNTER 2018-02-01 13:01 | Inpatient (IN) | payer OTHER, MEDICAID ==
[2018-02-01] VITALS (12 sets, daily range): BP systolic 99–137; BP diastolic 40–78
[~2018-02-01] VITALS: Ht 160 cm; Wt 70.5 kg
--- NOTE | ~2018-02-01 | CON ---
[place], [place] REPORT OF CONSULTATION [id number] UNIT #: [id number] ROOM: [facility] DOCTOR: CATIE SINGH MD BIRTHDATE: [birth year] DOS: 02/01/2018 GASTROENDOSCOPIC REPORT HISTORY OF PRESENT ILLNESS: A 72-year-old patient, who was presented with chief complaint of shortness of breath. In the Emergency Room; apparently, his shortness of breath have been progressively worsening over the past 3 weeks according to the family in the room and the patient was feeling weak and exhausted and she had to be admitted for definitive evaluation specifically after laboratory values showed the H of 6 and 20 with a comprehensive metabolic panel showing BUN and creatinine 42 and 1.6 with GFR of 38 and electrolytes of sodium 144 and chloride 113. Liver function test normal. Troponin being normal. Chest x-ray was done, essentially normal except suspected right tiny pleural effusion. PAST MEDICAL HISTORY: Associated with COPD, congestive heart failure in the past, atrial fibrillation, aortic valvular disease, chronic renal insufficiency, depression, hypertension, hyperlipidemia, coronary artery disease, and stenting. PAST SURGICAL HISTORY: Status post coronary artery bypass graft x 4 vessel and aortic valvular repair. SOCIAL HISTORY: Passive smoker. Nonalcohol consumer. FAMILY HISTORY: Noncontributory. ALLERGIES: To no known medications. MEDICATIONS: List was reviewed. REVIEW OF SYSTEMS: HEENT: In general, denies double vision or blurred vision. RESPIRATORY: Some shortness of breath. CARDIOVASCULAR: Denies chest pain. DIGESTIVE SYSTEM: No hematemesis. No hematochezia. Never has had endoscopic and colonoscopic evaluations. No weight loss. PHYSICAL EXAMINATION: VITAL SIGNS: Stable. HEENT: Head is normocephalic and nontraumatic. Mouth and buccal mucosa benign. NECK: Supple. No thyromegaly. No cervical lymphadenopathy. CHEST: Symmetric anatomy, equal expansion. No wheeze. No rhonchi. Decreased air entry bilaterally. I did not hear a rub. HEART: Normal sinus rhythm. No gallop. No murmur. ABDOMEN: Soft. No hepato-organomegaly. Bowel sounds present. No pulsatile mass. EXTREMITIES: No cyanosis. Mild stasis dermatitis and 1+ pedal edema was noticed. NEUROLOGIC: Fully alert and oriented to time, place, and person. Sensory and motor intact. Cranial nerves 2-12 intact. She is giving me the history. Her [place], [place] REPORT OF CONSULTATION NAME: RUBEN HENRY UNIT #: [id number] ROOM: [facility] DOCTOR: CATIE SINGH MD BIRTHDATE: [birth year] family is present in the room. She is nontoxically sick. IMPRESSION: Anemia, could be multifactorial. She is on Xarelto, Plavix, and aspirin. Some blood loss could be considered through the means of blood thinners and antiplatelets. On the other hand, contribution from chronic renal failure has to be considered, occult malignancy of colon always on the list, possibility of gastric blood loss secondary to aspirin influenced by Xarelto and Plavix on the list. Other adjunctive diagnoses as outlined in paragraph of past medical and surgical history of coronary artery disease, valvular heart disease, chronic obstructive pulmonary disease, hypertension, hyperlipidemia, and old history of atrial fibrillation all has been recognized. PLAN AND DISCUSSION: Due to the H and H of 6 and 20, we are going to organize 2 units of packed cells to be given tonight to slow and tomorrow morning H and H and the result would be called to Dr. Singh in the morning. We will assess her shortness of breath at that time. I trust that her shortness of breath is because of low H and H and some underlying chronic obstructive pulmonary disease issues. Furthermore, we are going to keep her on Protonix 40 mg IV for assuring that there is no blood loss in upper GI that needs coverage and clinical reassessment in future. Thank you very much indeed for your kind referral. CATIE SINGH MD CM:CONSTR:REPORT OF CONSULTATION 1744 02/02/18 0552 interface
--- NOTE | ~2018-02-01 | O ---
[place], [place] O[facility]ATIVE NOTE [id number] UNIT #: [id number] ROOM: 524 DOCTOR: CATIE ZARAGOZA MD BIRTHDATE: [birth year] DOS: 02/04/2018 INDICATIONS: A 72-year-old patient, who has presented with chief complaint of GI bleed. The patient has been on Xarelto, Plavix, and aspirin. PROCEDURE: Today's procedure part of investigation is panendoscopy and colonoscopy. PREMEDICATION: Versed and Diprivan. SCOPE: Olympus forward-viewing gastroscope Q10 video. REPORT: After putting the patient in left lateral position and application of lubricant to the scope, the scope was introduced. Thereafter, under direct visualization, I advanced through the length of esophagus without difficulty. Gastric pouch was entered. Evidence of multiple small antral erosions and small linear ulcerations in antrum was identified. Photographic series obtained and biopsy obtained. Duodenal bulb, second and third part within normal limits. The patient was gradually extubated and tolerated the procedure well. IMPRESSION: Multigastric erosions and small linear ulcerations. PLAN AND DISCUSSION: We are going to proceed with colonoscopy. GASTROENDOSCOPIC REPORT INDICATIONS: The patient with active GI bleed on Xarelto, Plavix and aspirin. PROCEDURE: Today's procedure part of investigation is colonoscopy. PREMEDICATION: Versed and Diprivan. SCOPE: Olympus folding colonoscope 10L video. REPORT: After putting the patient in left lateral position and application of lubricant to the scope, the scope was introduced. Thereafter, under direct visualization, advanced through the length of colon without difficulty. Presence of fresh blood was noticed all the way to the cecum. Cecum was photographed. Presence of blood in the colon was documented. Air was suctioned out. Rare diverticulosis seen. Diverticula were not bleeding. IMPRESSION: Diverticulosis, blood in the colon. PLAN AND DISCUSSION: Wondering if there is an angiodysplastic lesion of the small bowel; however, that would be difficult for demonstration without having a pill camera on board that the outpatient procedure on the other hand was obvious. The patient has been on anticoagulate and antiplatelets at the present time as the culprit of bleeding. She has been receiving multiple transfusions and her recent H and H has improved to 11 and 35.6. We are going to withhold [place], [place] OPERATIVE NOTE NAME: RUBEN HENRY UNIT #: [id number] ROOM: 524 DOCTOR: MILA MARTEL,CATIE BIRTHDATE: [birth year] aspirin and Plavix until blood count remains stable for 2-3 days. As far as her diet is concerned, we are going to go ahead and feed her soft diet as far as further studies are concerned her bleeding is not to a degree where this could be picked up by bleeding scan, neither with CT arteriogram. CATIE ZARAGOZA MD CM:OPRECORD:OPERATIVE NOTE 1511 1605 CATIE ZARAGOZA MD 02/04/18 1604 interface
--- NOTE | ~2018-02-01 | CON ---
[place], [place] REPORT OF CONSULTATION NAME: RUBEN HENRY [facility] #: [id number] UNIT #: [id number] ROOM: 524 DOCTOR: JEFFREY THOMPSON DPM BIRTHDATE: [birth year] DOS: 02/04/2018 SUBJECTIVE: This 72-year-old female is seen for evaluation of painful left first and third toes. She states she has an ingrown toenail in the area. She states this happened several months ago where she had an infection and the needed to put her on antibiotics and then did remove the ingrown nail. She states any pressure on the toe is painful. The patient is scheduled to have EGD and colonoscopy done today. She was admitted with a GI bleed and general malaise. PAST MEDICAL HISTORY: Includes acute kidney failure, acute respiratory failure, arthritis, atrial fibrillation, CHF, COPD, depression, history of falls, hypertension, hyperlipidemia, coronary artery disease, anemia, peripheral arterial disease, tricuspid regurgitation. ALLERGIES: No known drug allergies. CURRENT MEDICATIONS: Include calcitriol, Unasyn, [place], Zoloft, K-Dur, Colace, Protonix, Lopressor, Lipitor, Lasix. PHYSICAL EXAMINATION: Upon lower extremity physical examination, pedal pulses are decreased bilaterally. There is decreased hair growth noted bilaterally. Skin temperature is warm at the toes. CFT is slightly delayed at the toes bilaterally. Negative Homans sign noted bilaterally. Mild dependent edema is seen. Sensation appears grossly intact and symmetrical. The medial border of left great toenail is incurvated with mild edema and erythema. Significant pain noted to palpation, tenderness noted. No signs of abscess. No purulent drainage. Distal left third toe is painful as well. The patient will let me barely touch her toes because they are so tender. There is no open wound, no ulceration at this time. ASSESSMENT: Painful ingrown toenail, medial left great toe with mild infection and then pain to left third toe, peripheral arterial disease. PLAN: Consult is performed. The patient is scheduled for endoscopy and colonoscopy today. I would not recommend any procedures while here in the hospital. She will let me debride the toenails and debride out the ingrown nail at this time. I told her upon discharge, we could see her in the office and address the problem. She would need a local anesthetic to remove the ingrown nail at the left great toe. Right now, continue with antibiotics. There is only minimal infection of the left great toe and again upon discharge, we will follow her up and address the ingrown nail with procedure in the office. Thank you for the opportunity to take part in care of this patient. [place], [place] REPORT OF CONSULTATION NAME: RUBEN HENRY UNIT #: [id number] ROOM: 524 DOCTOR: JEFFREY THOMPSON DPM BIRTHDATE: [birth year] JEFFREY THOMPSON DPM CM:CONSTR:REPORT OF CONSULTATION 1155 02/04/18 1216 interface
[2018-02-01 14:07] LABS: BASO # 0.1 10*3/uL (0.0-0.1); BASO % 0.7 % (0.0-1.0)
[2018-02-01 14:21] LABS: ALBUMIN 3.1 gm/dl (3.1-4.5); ALKALINE PHOSPHATASE 63 U/L (45-117); BUN 42 mg/dl (7-24); CHLORIDE 113 mmol/L (98-107); CREATININE 1.63 mg/dL (0.55-1.02); POTASSIUM 4.7 mmol/L (3.5-5.1); SGOT/AST 16 IU/L (3-35); SGPT/ALT 16 U/L (12-78); SODIUM 144 mmol/L (136-145); TOTAL PROTEIN 6.1 gm/dL (6.4-8.2)
[2018-02-01 14:25] LABS: TROPONIN I < 0.015 ng/ml (<0.045)
[2018-02-01 14:26] LABS: EOS # 0.3 10*3/uL (0.0-0.4); EOS % 3.5 % (1.0-4.0); LYMPH # 1.2 10*3/uL (1.3-4.4); MEAN CELL VOLUME 82.4 fl (81.0-99.0); MEAN CORPUSCULAR HGB 23.5 pg (27.0-31.0); MEAN CORPUSCULAR HGB CONC 28.6 g/dl (33.0-37.0); MEAN PLATELET VOLUME 11.9 fl (9.6-12.3); MONO # 0.7 10*3/uL (0.1-1.0); NEUT # 7.2 10*3/uL (2.3-7.9); NEUT % 75.4 % (47.0-73.0); PLATELET COUNT AUTOMATED 277 10*3/uL (130-400); RED BLOOD COUNT 2.55 10*6/uL (4.10-5.10); RED CELL DISTRI WIDTH 16.5 % (0-14.5); WHITE BLOOD COUNT 9.5 10*3/uL (4.8-10.8)
[2018-02-01] MEDS ORDERED: CALCITRIOL0.25 MCG PO (15:14)
[2018-02-01] MEDS ORDERED: PROAIR HFA8.5 GM INH (15:14)
[2018-02-01] MEDS ORDERED: NAPROXEN500 MG PO (15:16)
[2018-02-01] MEDS ORDERED: POTASSIUM CHLO20 ME4 PO (15:19)
[2018-02-01] MEDS ORDERED: CLOPIDOGREL75 MG PO (15:20)
[2018-02-01] MEDS ORDERED: FUROSEMIDE20 M1 PO (15:21)
[2018-02-01] MEDS ORDERED: DOC-Q-LACE100 MG PO (15:58)
[2018-02-01 16:13] LABS: HEMATOCRIT 20.8 % (37.0-47.0)
[2018-02-02] VITALS (10 sets, daily range): BP systolic 99–148; BP diastolic 35–65
[2018-02-02 05:18] LABS: BASO # 0.1 10*3/uL (0.0-0.1); BASO % 0.8 % (0.0-1.0); EOS # 0.5 10*3/uL (0.0-0.4); EOS % 5.3 % (1.0-4.0); LYMPH # 1.9 10*3/uL (1.3-4.4); LYMPH % 19.4 % (27.0-41.0); MEAN CELL VOLUME 84.5 fl (81.0-99.0); MEAN CORPUSCULAR HGB 26.3 pg (27.0-31.0); MEAN CORPUSCULAR HGB CONC 31.1 g/dl (33.0-37.0); MEAN PLATELET VOLUME 10.6 fl (9.6-12.3); MONO # 0.8 10*3/uL (0.1-1.0); MONO % 8.3 % (3.0-9.0); NEUT # 6.6 10*3/uL (2.3-7.9); NEUT % 65.9 % (47.0-73.0); PLATELET COUNT AUTOMATED 236 10*3/uL (130-400); RED BLOOD COUNT 3.23 10*6/uL (4.10-5.10); RED CELL DISTRI WIDTH 16.7 % (0-14.5)
[2018-02-02 05:21] LABS: HEMATOCRIT 27.3 % (37.0-47.0); HEMOGLOBIN 8.5 g/dl (12.0-16.0)
[2018-02-02 05:39] LABS: ALBUMIN 3.1 gm/dl (3.1-4.5); CREATININE 1.68 mg/dL (0.55-1.02); FREE T4 1.02 ng/dl (0.76-1.46); PHOSPHOROUS 3.9 mg/dL (2.5-4.9); POTASSIUM 4.1 mmol/L (3.5-5.1)
[2018-02-02 05:44] LABS: THYROID STIM HORMONE (HS) 1.76 uIU/ml (0.358-4.75)
[2018-02-02 07:04] LABS: VITAMIN D, 25-HYDROXY 52.9 ng/mL (30-100)
[2018-02-03 00:02] VITALS: BP 115/55
[2018-02-03 04:00] VITALS: BP 101/50
[2018-02-03 04:55] LABS: BASO # 0.1 10*3/uL (0.0-0.1); BASO % 0.6 % (0.0-1.0); EOS # 0.5 10*3/uL (0.0-0.4); EOS % 5.5 % (1.0-4.0); HEMATOCRIT 31.2 % (37.0-47.0); HEMOGLOBIN 9.8 g/dl (12.0-16.0); LYMPH # 2.1 10*3/uL (1.3-4.4); LYMPH % 21.9 % (27.0-41.0); MEAN CELL VOLUME 86.7 fl (81.0-99.0); MEAN CORPUSCULAR HGB 27.2 pg (27.0-31.0); MEAN CORPUSCULAR HGB CONC 31.4 g/dl (33.0-37.0); MEAN PLATELET VOLUME 11.8 fl (9.6-12.3); MONO # 1.1 10*3/uL (0.1-1.0); MONO % 10.9 % (3.0-9.0); NEUT # 5.8 10*3/uL (2.3-7.9); NEUT % 60.8 % (47.0-73.0); PLATELET COUNT AUTOMATED 210 10*3/uL (130-400); RED CELL DISTRI WIDTH 17.2 % (0-14.5); WHITE BLOOD COUNT 9.6 10*3/uL (4.8-10.8)
[2018-02-03 05:08] LABS: ACT PARTIAL THROMBO TIME 21.5 SECONDS (20.8-31.5); INTERNATIONAL NORM RATIO 1.1 (2.0-3.5)
[2018-02-03 05:09] LABS: CREATININE 1.81 mg/dL (0.55-1.02); POTASSIUM 4.1 mmol/L (3.5-5.1)
[2018-02-03 08:00] VITALS: BP 100/54
[2018-02-03 12:00] VITALS: BP 108/62
[2018-02-03 16:00] VITALS: BP 102/51
[2018-02-03 20:00] VITALS: BP 119/68
[2018-02-04] VITALS (9 sets, daily range): BP systolic 106–151; BP diastolic 43–94
[2018-02-04 06:25] LABS: BASO # 0.1 10*3/uL (0.0-0.1); BASO % 0.9 % (0.0-1.0); EOS # 0.7 10*3/uL (0.0-0.4); EOS % 6.4 % (1.0-4.0); HEMATOCRIT 35.6 % (37.0-47.0); LYMPH # 1.6 10*3/uL (1.3-4.4); LYMPH % 15.8 % (27.0-41.0); MEAN CELL VOLUME 87.5 fl (81.0-99.0); MEAN CORPUSCULAR HGB CONC 30.9 g/dl (33.0-37.0); MEAN PLATELET VOLUME 12.1 fl (9.6-12.3); MONO # 0.9 10*3/uL (0.1-1.0); MONO % 9.2 % (3.0-9.0); NEUT # 6.9 10*3/uL (2.3-7.9); NEUT % 67.5 % (47.0-73.0); RED BLOOD COUNT 4.07 10*6/uL (4.10-5.10); RED CELL DISTRI WIDTH 17.8 % (0-14.5); WHITE BLOOD COUNT 10.2 10*3/uL (4.8-10.8)
[2018-02-04 06:26] LABS: PLATELET COUNT AUTOMATED 274 10*3/uL (130-400)
[2018-02-04 06:33] LABS: CREATININE 1.6 mg/dL (0.55-1.02)
[2018-02-05] VITALS: BP 116/80
[2018-02-05 08:00] VITALS: BP 124/56
[2018-02-05 09:37] LABS: HEMATOCRIT 32.2 % (37.0-47.0); HEMOGLOBIN 10.1 g/dl (12.0-16.0)
[2018-02-05 12:00] VITALS: BP 120/60
[2018-02-05 16:00] VITALS: BP 93/46
== END 2018-02-05 17:30 | disposition home or self-care (01) | DRG 377 ==
LOC: ED 13:01 → 5E 15:00 → EDHOLD 15:00 → 5E 15:09 → ICCU 16:27 → 5E 02-03 17:03
PROVIDERS: Emergency Medicine; Internal Medicine Gastroenterology; Registered Nurse; Student in an Organized Health Care Education/Training Program
PROC: 30233N1 Transfusion of Nonautologous Red Blood Cells into Peripheral Vein, Percutaneous Approach (ICD-10-PCS; principal; 2018-02-01)
PROC: 0DB78ZX Excision of Stomach, Pylorus, Via Natural or Artificial Opening Endoscopic, Diagnostic (ICD-10-PCS; 2018-02-04)
PROC: 0DJD8ZZ Inspection of Lower Intestinal Tract, Via Natural or Artificial Opening Endoscopic (ICD-10-PCS; 2018-02-04)
DX: K25.4 Chronic or unspecified gastric ulcer with hemorrhage (principal); E43 Unspecified severe protein-calorie malnutrition; I48.1 Persistent atrial fibrillation; I13.0 Hypertensive heart and chronic kidney disease with heart failure and stage 1 through stage 4 chronic kidney disease, or unspecified chronic kidney disease; I50.9 Heart failure, unspecified; K57.91 Diverticulosis of intestine, part unspecified, without perforation or abscess with bleeding; D64.9 Anemia, unspecified; N18.3 Chronic kidney disease, stage 3 (moderate); M19.90 Unspecified osteoarthritis, unspecified site; I25.10 Atherosclerotic heart disease of native coronary artery without angina pectoris; F41.9 Anxiety disorder, unspecified; J44.9 Chronic obstructive pulmonary disease, unspecified; F32.9 Major depressive disorder, single episode, unspecified; L60.0 Ingrowing nail; L08.9 Local infection of the skin and subcutaneous tissue, unspecified; E78.2 Mixed hyperlipidemia; M81.0 Age-related osteoporosis without current pathological fracture; I73.9 Peripheral vascular disease, unspecified; Z87.01 Personal history of pneumonia (recurrent); Z95.2 Presence of prosthetic heart valve; Z87.891 Personal history of nicotine dependence; Z82.49 Family history of ischemic heart disease and other diseases of the circulatory system; Z80.3 Family history of malignant neoplasm of breast; Z79.899 Other long term (current) drug therapy; Z79.82 Long term (current) use of aspirin; Z95.5 Presence of coronary angioplasty implant and graft; Z95.1 Presence of aortocoronary bypass graft; Z91.81 History of falling; I25.2 Old myocardial infarction; Z68.26 Body mass index [BMI] 26.0-26.9, adult

== ENCOUNTER 2018-04-08 01:28 | Emergency (ER) | payer OTHER, MEDICAID ==
[~2018-04-08] VITALS: Ht 160 cm; Wt 65.8 kg
[~2018-04-08 01:28] MED LIST changes: +CALCITRIOL0.25 MCG PO; +CLOPIDOGREL75 MG PO; +DOC-Q-LACE100 MG PO; +FUROSEMIDE20 M1 PO; +NAPROXEN500 MG PO; +POTASSIUM CHLO20 ME4 PO; +PROAIR HFA8.5 GM INH
[2018-04-08 01:55] LABS: BASO # 0.1 10*3/uL (0.0-0.1); BASO % 0.8 % (0.0-1.0); EOS # 0.7 10*3/uL (0.0-0.4); EOS % 7.8 % (1.0-4.0); HEMATOCRIT 31.1 % (37.0-47.0); HEMOGLOBIN 9.8 g/dl (12.0-16.0); LYMPH # 2.3 10*3/uL (1.3-4.4); LYMPH % 26.4 % (27.0-41.0); MEAN CELL VOLUME 84.3 fl (81.0-99.0); MEAN CORPUSCULAR HGB 26.6 pg (27.0-31.0); MEAN CORPUSCULAR HGB CONC 31.5 g/dl (33.0-37.0); MONO # 0.9 10*3/uL (0.1-1.0); NEUT # 4.6 10*3/uL (2.3-7.9); NEUT % 53.8 % (47.0-73.0); PLATELET COUNT AUTOMATED 169 10*3/uL (130-400); RED BLOOD COUNT 3.69 10*6/uL (4.10-5.10); RED CELL DISTRI WIDTH 18.2 % (0-14.5); WHITE BLOOD COUNT 8.6 10*3/uL (4.8-10.8)
[2018-04-08 02:03] LABS: ACT PARTIAL THROMBO TIME 28.9 SECONDS (20.8-31.5); INTERNATIONAL NORM RATIO 1.2 (2.0-3.5)
[2018-04-08 02:12] LABS: ALBUMIN 3.8 gm/dl (3.1-4.5); ALKALINE PHOSPHATASE 79 U/L (45-117); BUN 42 mg/dl (7-24); CHLORIDE 105 mmol/L (98-107); CREATININE 2.11 mg/dL (0.55-1.02); POTASSIUM 3.8 mmol/L (3.5-5.1); SGOT/AST 13 IU/L (3-35); SGPT/ALT 16 U/L (12-78); SODIUM 140 mmol/L (136-145)
[2018-04-08 02:13] LABS: TROPONIN I < 0.015 ng/ml (<0.045)
== END 2018-04-08 03:23 | disposition home or self-care (01) ==
LOC: ED 01:28
PROVIDERS: Student in an Organized Health Care Education/Training Program
DX: K06.8 Other specified disorders of gingiva and edentulous alveolar ridge (principal); I12.9 Hypertensive chronic kidney disease with stage 1 through stage 4 chronic kidney disease, or unspecified chronic kidney disease; N18.3 Chronic kidney disease, stage 3 (moderate); M19.90 Unspecified osteoarthritis, unspecified site; I48.91 Unspecified atrial fibrillation; E78.5 Hyperlipidemia, unspecified; I25.2 Old myocardial infarction; E66.3 Overweight; Z68.29 Body mass index [BMI] 29.0-29.9, adult; Z87.891 Personal history of nicotine dependence; Z98.890 Other specified postprocedural states; Z95.1 Presence of aortocoronary bypass graft; Z79.82 Long term (current) use of aspirin; Z79.899 Other long term (current) drug therapy

== ENCOUNTER 2018-12-03 13:03 | Emergency (ER) | payer OTHER, MEDICAID ==
[~2018-12-03] VITALS: Ht 160 cm; Wt 70.3 kg
[2018-12-03] MEDS ORDERED: TYLENOL325 M1 PO (13:22)
[2018-12-03] MEDS ORDERED: VALTREX1000 MG PO ×2 (13:22→13:25)
[2018-12-03] MEDS ORDERED: TRAMADOL HCL50 MG PO (13:27)
== END 2018-12-03 13:33 | disposition home or self-care (01) ==
LOC: ED 13:03
DX: B02.9 Zoster without complications (principal); I12.9 Hypertensive chronic kidney disease with stage 1 through stage 4 chronic kidney disease, or unspecified chronic kidney disease; N18.3 Chronic kidney disease, stage 3 (moderate); I48.91 Unspecified atrial fibrillation; J44.9 Chronic obstructive pulmonary disease, unspecified; E78.5 Hyperlipidemia, unspecified; I25.2 Old myocardial infarction; I73.9 Peripheral vascular disease, unspecified; M81.0 Age-related osteoporosis without current pathological fracture; Z79.899 Other long term (current) drug therapy; Z79.82 Long term (current) use of aspirin

== ENCOUNTER → 2019-02-12 | Outpatient (CLI) | payer OTHER, MEDICAID ==
[~2019-02-12] MED LIST changes: +TRAMADOL HCL50 MG PO; +VALTREX1000 MG PO
== END | disposition home or self-care (01) ==
LOC: LAB 16:04
DX: N39.0 Urinary tract infection, site not specified (principal)

== ENCOUNTER → 2019-05-07 | Outpatient (CLI) | payer OTHER, MEDICAID | END | disposition home or self-care (01) | LOC: MAMMO 04-10 13:00 → US 04-10 14:00 → MAMMO 12:41 | DX: N63.21 Unspecified lump in the left breast, upper outer quadrant (principal); R92.2 Inconclusive mammogram; M79.651 Pain in right thigh ==

== ENCOUNTER → 2019-10-01 | Outpatient (CLI) | payer OTHER, MEDICAID | END | disposition home or self-care (01) | LOC: US 13:30 → LAB 13:42 | DX: I25.10 Atherosclerotic heart disease of native coronary artery without angina pectoris (principal); E11.9 Type 2 diabetes mellitus without complications; I10 Essential (primary) hypertension; I73.9 Peripheral vascular disease, unspecified; I75.022 Atheroembolism of left lower extremity ==

== ENCOUNTER 2019-11-21 23:48 | Emergency (ER) | payer OTHER, MEDICAID ==
[~2019-11-21] VITALS: Ht 160 cm; Wt 60.3 kg
[2019-11-22] MEDS ORDERED: FERROUS SULFAT325 MG PO
[2019-11-22] MEDS ORDERED: NEURONTIN300 MG PO
[2019-11-22] MEDS ORDERED: OXYBUTYNIN CHLOR5 GM PO (00:01)
[2019-11-22] MEDS ORDERED: ELIQUIS5 M1 PO (00:01)
[2019-11-22] MEDS ORDERED: MYRBETRIQ25 M1 PO (00:02)
[2019-11-22] MEDS ORDERED: AMPICILLIN500 MG PO (00:02)
[2019-11-22 01:02] LABS: HEMATOCRIT 39.9 % (37.0-47.0); HEMOGLOBIN 12.6 g/dl (12.0-16.0); MEAN CELL VOLUME 95.2 fl (81.0-99.0); MEAN CORPUSCULAR HGB 30.1 pg (27.0-31.0); MEAN CORPUSCULAR HGB CONC 31.6 g/dl (33.0-37.0); MEAN PLATELET VOLUME 12.8 fl (9.6-12.3); PLATELET COUNT AUTOMATED 221 10*3/uL (130-400); RED BLOOD COUNT 4.19 10*6/uL (4.10-5.10); RED CELL DISTRI WIDTH 14.2 % (0-14.5); WHITE BLOOD COUNT 21.1 10*3/uL (4.8-10.8)
[2019-11-22 01:07] LABS: ACT PARTIAL THROMBO TIME 40.8 SECONDS (20.0-32.1); INTERNATIONAL NORM RATIO 1.2 (2.0-3.5)
[2019-11-22 01:12] LABS: ALBUMIN 3.3 gm/dl (3.1-4.5); CREATININE 1.62 mg/dL (0.55-1.02); POTASSIUM 4.3 mmol/L (3.5-5.1); TOTAL PROTEIN 7.6 gm/dL (6.4-8.2)
[2019-11-22 01:29] LABS: PLATELET SUFFICIENCY NORMAL (NORMAL); TOTAL CELLS COUNTED 100 #CELLS
[2019-11-22 02:41] LABS: BILIRUBIN 2+ (NEGATIVE); CLARITY SL CLOUDY (CLEAR); COLOR YELLOW (YELLOW); GLUCOSE NEGATIVE (NEGATIVE); KETONE 1+ (NEGATIVE)
[2019-11-22 02:42] LABS: BLOOD TRACE-INTACT (NEGATIVE); LEUKO ESTERASE 2+ (NEGATIVE); NITRITE NEGATIVE (NEGATIVE); UROBILINOGEN 0.2 E.U./dl (0.2-1.0); WBC 16-20 wbc/hpf (0-5)
[2019-11-22 02:43] LABS: BACTERIA 2+; YEAST TRACE
== END 2019-11-22 08:45 | disposition short-term general hospital (02) ==
LOC: ED 23:48
PROVIDERS: Emergency Medicine Emergency Medical Services
DX: K11.20 Sialoadenitis, unspecified (principal); J44.9 Chronic obstructive pulmonary disease, unspecified; R41.82 Altered mental status, unspecified; I48.91 Unspecified atrial fibrillation; E78.5 Hyperlipidemia, unspecified; I25.2 Old myocardial infarction; M81.0 Age-related osteoporosis without current pathological fracture; I12.9 Hypertensive chronic kidney disease with stage 1 through stage 4 chronic kidney disease, or unspecified chronic kidney disease; N18.3 Chronic kidney disease, stage 3 (moderate); I73.9 Peripheral vascular disease, unspecified; G89.29 Other chronic pain; L40.9 Psoriasis, unspecified; M17.0 Bilateral primary osteoarthritis of knee; M47.9 Spondylosis, unspecified; Z79.899 Other long term (current) drug therapy; Z79.2 Long term (current) use of antibiotics; Z79.82 Long term (current) use of aspirin; Z87.891 Personal history of nicotine dependence; Z98.61 Coronary angioplasty status

== ENCOUNTER 2019-12-17 05:29 | Emergency (ER) | payer OTHER, MEDICAID ==
[~2019-12-17] VITALS: Ht 162.5 cm; Wt 57.2 kg
[~2019-12-17 05:29] MED LIST changes: +AMPICILLIN500 MG PO; +ELIQUIS5 M1 PO; +MYRBETRIQ25 M1 PO; +NEURONTIN300 MG PO; +OXYBUTYNIN CHLOR5 GM PO
== END 2019-12-17 06:45 | disposition home or self-care (01) ==
LOC: ED 05:29
DX: S09.90XA Unspecified injury of head, initial encounter (principal); J44.9 Chronic obstructive pulmonary disease, unspecified; I48.91 Unspecified atrial fibrillation; M81.0 Age-related osteoporosis without current pathological fracture; E78.5 Hyperlipidemia, unspecified; I10 Essential (primary) hypertension; I13.0 Hypertensive heart and chronic kidney disease with heart failure and stage 1 through stage 4 chronic kidney disease, or unspecified chronic kidney disease; N18.3 Chronic kidney disease, stage 3 (moderate); M19.90 Unspecified osteoarthritis, unspecified site; Z79.899 Other long term (current) drug therapy; Z79.82 Long term (current) use of aspirin; Z87.891 Personal history of nicotine dependence; W01.198A Fall on same level from slipping, tripping and stumbling with subsequent striking against other object, initial encounter; Y93.89 Activity, other specified; Y92.89 Other specified places as the place of occurrence of the external cause; Y99.8 Other external cause status

== ENCOUNTER 2020-01-07 13:51 | Emergency (ER) | payer OTHER, MEDICAID ==
[~2020-01-07] VITALS: Wt 68.0 kg
[2020-01-07 13:55] VITALS: BP 135/73
--- NOTE | 2020-01-07 15:42 | NUR ---
RESTING QUIETLY IN NO DISTRESS. CALL LIGHT IN REACH.
[2020-01-07 16:20] LABS: HEMATOCRIT 36.7 % (37.0-47.0); HEMOGLOBIN 11.9 g/dl (12.0-16.0); MEAN CELL VOLUME 91.3 fl (81.0-99.0); MEAN CORPUSCULAR HGB 29.6 pg (27.0-31.0); MEAN CORPUSCULAR HGB CONC 32.4 g/dl (33.0-37.0); MEAN PLATELET VOLUME 12.1 fl (9.6-12.3); PLATELET COUNT AUTOMATED 330 10*3/uL (130-400); RED BLOOD COUNT 4.02 10*6/uL (4.10-5.10); WHITE BLOOD COUNT 24.7 10*3/uL (4.8-10.8)
[2020-01-07 16:30] LABS: INTERNATIONAL NORM RATIO 1.3 (2.0-3.5)
[2020-01-07 16:39] LABS: PLATELET SUFFICIENCY NORMAL (NORMAL); TOTAL CELLS COUNTED 100 #CELLS
[2020-01-07 16:40] LABS: BURR CELLS MODERATE
[2020-01-07 16:45] LABS: ALKALINE PHOSPHATASE 128 U/L (45-117); BUN 75 mg/dl (7-24); CHLORIDE 107 mmol/L (98-107); CREATININE 1.53 mg/dL (0.55-1.02); LIPASE 321 U/L (73-393); PHOSPHOROUS 3.1 mg/dL (2.5-4.9); POTASSIUM 3.1 mmol/L (3.5-5.1); SGOT/AST 47 IU/L (3-35); SGPT/ALT 22 U/L (12-78); SODIUM 138 mmol/L (136-145); TOTAL PROTEIN 6.1 gm/dL (6.4-8.2)
[2020-01-07 16:55] LABS: TROPONIN I < 0.015 ng/ml (<0.045)
[2020-01-07 17:44] LABS: BILIRUBIN 1+ (NEGATIVE); BLOOD 3+ (NEGATIVE); CLARITY CLOUDY (CLEAR); COLOR YELLOW (YELLOW); GLUCOSE NEGATIVE (NEGATIVE); KETONE 1+ (NEGATIVE); LEUKO ESTERASE 3+ (NEGATIVE); NITRITE POSITIVE (NEGATIVE); SPECIFIC GRAVITY 1.015 (1.005-1.030); UROBILINOGEN 0.2 E.U./dl (0.2-1.0)
[2020-01-07 17:45] LABS: BACTERIA 4+; MUCOUS 3+; WBC TNTC wbc/hpf (0-5)
--- NOTE | 2020-01-07 18:01 | NUR ---
RESTING QUIETLY IN NO DISTRESS. CALL LIGHT IN REACH.
[2020-01-07 18:12] VITALS: BP 104/57
--- NOTE | 2020-01-07 21:42 | NUR ---
INFUSION OF FLAGYL COMPLETED.
--- NOTE | 2020-01-07 23:57 | NUR ---
Transfer Out, from the Emergency Department - Stable This patient, RUBEN HENRY, 74[birth year], [id number], [id number], was examined by the Emergency Department physician, SERVANDO Hernández DNP and efforts were made to stabilize the patient. The patient's condition is stable. The reason for transfer is need higher level of care . The Emergency physician has made the decision to transfer the patient out. Refer to the ED physician's dictation for the family/back-up physician notified. The attending physician has spoken to the accepting physician at the receiving facility, DR BROCK. Refer to the ED physician's dictation. The receiving facility has space and qualified personnel to care for the patient, and has agreed to accept the patient. Proper equipment and trained personnel have been arranged. The mode of transport is ground. The agency is [facility]. The Emergency physician has spoken to the transport staff re: patient's condition and needs during transport. Copies of the medical record have been forwarded to the receiving facility, including: - Emergency Department record: - name, address, hospital number, age, next of kin - presenting problem - history of injury, past medical history - treatment, medications & route, fluid type & volume - lab and xray findings, films - physical findings - vitals signs -- prehospital, emergency, pre-transfer - preliminary diagnosis - status/condition - emergency medical services record - consent for transfer - authorization for record release - name of any involed physicians -- responsive or not - name and address of referring physician - name of contact physician at receiving facility - name of accepting physician at receiving facility Nursing report has been given to ADA PENA. Valuables include CLOTHING. and were given to EMS. CARLOS LEAL
--- NOTE | 2020-01-07 23:59 | NUR ---
[facility] HERE AT THIS TIME. REPORT GIVEN AND CARE TURNED OVER AT THIS TIME.
--- NOTE | 2020-01-08 18:57 | NUR ---
LAB CALLED WITH POSITIVE BLOOD CULTURE RESULT OF POSITIVE ANAEROBIC GRAM POSITIVE COCCI AND PAIRS AND CLUSTERS.
--- NOTE | 2020-01-08 19:16 | NUR ---
THIS RN SPOKE WITH BECKY LUIS AT [facility] AND UPDATED HER ON RESULTS OF PT GRAM POSITIVE BLOOD CULTURES.
--- NOTE | 2020-01-10 07:21 | NUR ---
LAB CALLED AT THIS TIME WITH POSITIVE BLOOD CULTURE RESULTS. STATES PATIENT IS POSITIVE FOR MRSA. RESULTS FAXED TO THE NURSE BY [facility].
== END 2020-01-08 01:23 | disposition short-term general hospital (02) ==
LOC: ED 13:51 → EDHOLD 18:17 → ED 01-08 01:23
PROVIDERS: Nurse Practitioner Family
DX: R65.20 Severe sepsis without septic shock (principal); K52.9 Noninfective gastroenteritis and colitis, unspecified; E87.6 Hypokalemia; J18.9 Pneumonia, unspecified organism; N39.0 Urinary tract infection, site not specified; M19.90 Unspecified osteoarthritis, unspecified site; F41.9 Anxiety disorder, unspecified; I11.0 Hypertensive heart disease with heart failure; I50.9 Heart failure, unspecified; E78.5 Hyperlipidemia, unspecified; J44.9 Chronic obstructive pulmonary disease, unspecified; Z79.899 Other long term (current) drug therapy; Z79.82 Long term (current) use of aspirin; Z87.891 Personal history of nicotine dependence